=== PATIENT | female | born 1950 | race Caucasian/White ===

== ENCOUNTER 2017-01-18 16:46 | Inpatient (IN) | payer OTHER, BC ==
[~2017-01-18] VITALS: Ht 170.2 cm; Wt 99.0 kg
[2017-01-18] MEDS ORDERED: HYDROmorphone INJ 1 MG/ML SYR IV STA (17:14)
[2017-01-18] MEDS ORDERED: METOCLOPRAMIDE HCL INJ 5 MG/ML 2 ML VIAL IV STA (17:14)
[2017-01-18] MEDS ORDERED: KETOROLAC TROMETHAMINE 30 MG/ML VIAL IV STA (17:14)
[2017-01-18 17:24] LABS: BASO % 0.3 %; BASO ABS # 0.03 K/uL (0-0.2); COMPLETE YES; EOS % 0.2 %; HEMATOCRIT 42.1 % (37-47); IG% 0.1 %; LYMPH % 9.9 %; LYMPH ABS # 0.89 K/uL (1.2-3.4); MEAN CELL VOLUME 89.6 fL (80-100); MEAN CORPUSCULAR HEMOGLOBIN 30.2 pg (25-34); MEAN CORPUSCULAR HGB CONC 33.7 g/dl (32-36); MEAN PLATELET VOLUME 9.5 fL (7.4-10.4); MONO % 2.9 %; NEUT % 86.6 %; PLATELET COUNT 208 K/uL (130-400); WHITE BLOOD COUNT 8.99 K/uL (4.8-10.8)
[2017-01-18] MEDS ORDERED: METO50TA7 PO (17:24)
[2017-01-18] MEDS ORDERED: ATOR10TA82 PO (17:24)
[2017-01-18] MEDS ORDERED: ASCO500T16 PO (17:26)
[2017-01-18] MEDS ORDERED: CHOL1000 PO (17:26)
[2017-01-18] MEDS ORDERED: METF-382 PO (17:26)
[2017-01-18] MEDS ORDERED: CYAN10005 PO (17:26)
[2017-01-18] MEDS ORDERED: ASPI81TA28 PO (17:26)
[2017-01-18 17:36] LABS: ALT/SGPT 313 U/L (12-78); AST/SGOT 505 U/L (15-37); BLOOD UREA NITROGEN 20 mg/dl (7-18); BUN/CREATININE RATIO 17.7 (10-20); CALCIUM 9.3 mg/dl (8.5-10.1); CARBON DIOXIDE 25 mmol/L (21-32); CHLORIDE 103 mmol/L (98-107); GLUCOSE 185 mg/dl (70-99); POTASSIUM 4.1 mmol/L (3.5-5.1); SODIUM 139 mmol/L (136-145)
[2017-01-18] MEDS ORDERED: SODIUM CHLORIDE 0.9% 500ML 500 ML IV STA (17:40)
[2017-01-18 17:41] LABS: ALKALINE PHOSPHATASE 88 U/L (45-117)
--- NOTE | 2017-01-18 17:42 | DIAGNOSTIC IMAGING REPORT ---
CHEST ONE VIEW PORTABLE HISTORY: Atypical CHEST PAIN COMPARISON: None. FINDINGS: The lungs are clear. Cardiac silhouette is normal in size. No pleural effusions. No pneumothorax. IMPRESSION: No acute process. Electronically signed by: Shai Velazquez M.D. 01/18/2017 5:41 PM Dictated Date/Time: 01/18/2017 5:41 PM
--- NOTE | 2017-01-18 19:25 | EMERGENCY ROOM VISIT NOTE ---
History Report prepared by Christie: Funmi Glass Under the Supervision of: Dr. Chris Granados M.D. First contact with patient: 17:00 Chief Complaint: ABDOMINAL PAIN Stated Complaint: POSSIBLE ILIOSTOMY BLOCKAGE, ABDOMINAL PAIN History of Present Illness The patient is a 66 year old female who presents to the Emergency Room with complaints of worsening abdominal pain starting this morning. She currently rates her pain as an 8/10 in severity.The patient states that she ate a banana and following that, started to have the pain. She reports that the pain has continued to increase throughout the day. The patient reports that she has an ileostomy that was installed a little over a year ago. She reports that she has this installed since she had colon cancer. She notes that she had a resection of a piece of her colon twenty years ago. The patient notes that she isn't getting as much from ileostomy as normal, but that the consistency is the same. She reports that the pain is worst when standing or laying on her side. The patient complains of chest pain in the middle of her chest. Source of History: patient Onset: this morning Position: abdomen Symptom Intensity: 8/10 Timing: worsening Modifying Factors (Worsening): other (standing and laying on her side) Associated Symptoms: + chest pain Note: The patient complains of abnormal amounts from her ileostomy. The patient denies a change in the consistency from her ileostomy. Review of Systems See HPI for pertinent positives & negatives. A total of 10 systems reviewed and were otherwise negative. Past Medical & Surgical Medical Problems: (1) Abdominal pain (2) Choledocholithiasis (3) Colon cancer (4) Diabetes (5) DVT (deep venous thrombosis) (6) Hypertension Surgical Problems: (1) History of hysterectomy Family History FHx: cancer FHx: diabetes mellitus FHx: hypertension FHx: stroke Heart disease Social History Smoking Status: Never Smoker Smokeless Tobacco Use: No Alcohol Use: none Marital Status: Housing Status: lives with significant other Occupation Status: retired Current/Historical Medications Scheduled Ascorbic Acid (Ascorbic Acid), 2 TAB PO DAILY Aspirin (Aspirin Ec), 81 MG PO DAILY Atorvastatin (Lipitor), 10 MG PO DAILY Cholecalciferol (Vitamin D3), 2 TAB PO DAILY Cyanocobalamin (Vitamin B-12), 1,000 MCG PO DAILY Metformin Ext Rel (Glucophage Ext Rel), 1 TAB PO BID Metoprolol Succ (Toprol Xl) (Toprol-Xl), 0.5 TAB PO DAILY Allergies Coded Allergies: Latex1 -Allergic Contact Dermititis (Unverified Allergy, Intermediate, latex tape after a extended period of time, 01/18/17) Physical Exam Vital Signs Date Time Temp Pulse Resp B/P Pulse Ox O2 Delivery O2 Flow Rate FiO2 01/18/17 21:44 72 20 128/52 99 Room Air 01/18/17 20:48 65 20 127/48 97 Room Air 01/18/17 19:18 96 Room Air 01/18/17 19:18 96 Room Air 01/18/17 19:18 76 20 129/55 96 01/18/17 17:59 77 20 138/56 100 01/18/17 16:55 36.3 60 20 139/68 98 Room Air Physical Exam GENERAL: Patient is a healthy-appearing well-nourished HEAD: Normocephalic atraumatic EYES: Ocular movements intact pupils equal and react to light OROPHARYNX mucous membranes are moist no exudates present no erythema or edema present NECK: Supple no nuchal rigidity CHEST: Good equal expansion LUNGS: Clear and equal to auscultation CARDIAC: Normal S1 and S2 ABDOMEN: Soft nontender no guarding, diffuse abdominal pain, ileostomy placed and draining. BACK: No CVA tenderness EXTREMITIES: No pain upon palpation normal muscle strength in all groups no clubbing cyanosis or edema NEURO: Patient is following commands is answering questions appropriately. Alert and oriented x3 Cranial Nerves 2-12 grossly intact Medical Decision & Procedures ER Provider Diagnostic Interpretation: Radiology results as stated below per my review and radiologist interpretation: CHEST ONE VIEW PORTABLE HISTORY: Atypical CHEST PAIN COMPARISON: None. FINDINGS: The lungs are clear. Cardiac silhouette is normal in size. No pleural effusions. No pneumothorax. IMPRESSION: No acute process. Electronically signed by: Shai Velazquez M.D. 01/18/2017 5:41 PM Dictated Date/Time: 01/18/2017 5:41 PM ABDOMINAL ULTRASOUND, RIGHT UPPER QUADRANT HISTORY: Pt c/o abd pain, elevation in transaminases. COMPARISON: None. FINDINGS: Pancreas: The pancreatic tail is obscured by overlying bowel gas. The remaining portions of the pancreas are within normal limits. Liver: The liver is echogenic consistent with fatty change. Mildly enlarged measuring 20 cm in length. Trace fluid surrounding the liver. Gallbladder: Mild thickening of the gallbladder wall at the hepatic surface measuring 4 mm. There are few tiny gallstones. CBD: 7 mm. Right kidney: No hydronephrosis. IMPRESSION: 1. A few tiny gallstones. 2. Mild thickening at the gallbladder wall at the hepatic surface. This favors an underlying hepatic pathology. A developing acute cholecystitis could also have a similar appearance but is considered less likely. 3. The common bile duct is top normal in caliber measuring 7 mm. 4. Mild hepatomegaly demonstrating fatty change. Electronically signed by: Shai Velazquez M.D. 01/18/2017 7:31 PM Dictated Date/Time: 01/18/2017 7:27 PM ABDOMEN AND PELVIS CT WITH IV AND ORAL CONTRAST CT DOSE: 873.57 mGy.cm HISTORY: Generalized abdominal pain. Lower abdominal pain. Nausea. Vomiting. TECHNIQUE: Multiaxial CT images of the abdomen and pelvis were performed following the use of intravenous and oral contrast. COMPARISON STUDY: Abdominal ultrasound 01/18/2017. FINDINGS: A 4 mm subpleural nodule within the right lower lobe on image 9. No pneumoperitoneum. No pneumatosis. No fractures within the visualized osseous structures. Mild periportal edema. There is trace perihepatic and pericholecystic fluid. A few tiny gallstones. No hepatic or splenic masses. The adrenal glands and right kidney are unremarkable. There is a 6 cm cyst within the upper pole the left kidney. There is a 2.8 cm hypodense lesion within the lower pole of the left kidney. This contains a few calcifications. This could represent a calyceal diverticulum. No hydronephrosis. No retroperitoneal lymphadenopathy. The main portal vein is patent. The pancreas enhances normally. Small umbilical hernia containing a short segment of nonobstructed small bowel. The bladder is unremarkable. Postoperative changes consistent with prior colectomy and right lower quadrant ileostomy. Small amount of fluid along the left paracolic gutter. This also small focus of fluid at the ostomy site. Fluid at the malvin hepatis. Thickening versus under distention within the proximal jejunum along the left side of the abdomen. IMPRESSION: 1. Fluid within the malvin hepatis along with periportal edema, trace perihepatic ascites, and trace pericholecystic fluid. Findings are nonspecific but could be due to an underlying hepatic abnormality such as a hepatitis. Recommend correlation with LFTs. An acute cholecystitis or less likely pancreatitis could also have a similar appearance. There are few tiny gallstones 2. Question thickening versus under distention within the jejunum along the left side the abdomen. 3. No evidence for bowel obstruction. 4. Small umbilical hernia containing a short segment of nonobstructed small bowel. 5. Postoperative changes as described above. 6. A 2.8 cm hypodense lesion within the lower pole the left kidney which contains a few coarse calcifications. This could represent a calyceal diverticulum. Follow-up nonemergent dedicated renal CT is recommended for further evaluation. 7. A 4 mm subpleural nodule within the right lower lobe. Please refer to the chart below for recommended follow-up. Please refer to below summary of Fleischner criteria recommendations for follow-up of incidental CT nodules (Jeferson Valdivia, Guidelines for management of small pulmonary nodules detected on CT scans: A statement from the Fleischner Society, Radiology 237: [phone].) SOLID NODULES Solitary nodule size: <6 mm * Low risk patients: no follow-up needed * high risk patients: optional CT at 12 months Solitary nodule size: 6-8 mm * Low risk patients: follow-up at 6-12 months, then consider further follow-up at 18-24 months * high risk patients: initial follow-up CT at 6-12 months and then at 18-24 months if no change Solitary nodule size: >8 mm * either low or high risk patients - consider follow-up CT at 3 months, and/or CT-PET, and/or biopsy Multiple nodules size: <6 mm * Low risk patients: no routine follow-up * high risk patients: optional CT at 12 months Multiple nodules size: 6-8 mm * Low risk patients: follow-up at 3-6 months, then consider further follow-up at 18-24 months * high risk patients: follow-up at 3-6 months, then at 18-24 months if no change Multiple nodules size: >8 mm * Low risk patients: follow-up at 3-6 months, then consider further follow-up at 18-24 months * high risk patients: follow-up at 3-6 months, then at 18-24 months if no change Note: newly detected indeterminate nodule in persons 35 years of age or older. * Low risk patients: minimal or absent history of smoking and/or other known risk factors * high risk patients: history of smoking or of other known risk factors (e.g. first degree relative with lung cancer, or exposure to asbestos, radon, uranium) * if a nodule up to 8 mm is partly solid or is ground glass further follow-up is required after 24 months to exclude possible slow growing adenocarcinoma (KANCHAN) SUBSOLID NODULES Solitary pure ground-glass nodule * nodule size <6 mm - no CT follow-up required * nodule size >=6 mm - follow-up CT at 6-12 months, then every 2 years until 5 years Solitary part-solid nodule * nodule size <6 mm - no CT follow-up required * nodule size >=6 mm - follow-up CT at 3-6 months. If unchanged, and solid component remains <6 mm, then annual follow-up for 5 years Multiple subsolid nodules * nodule size <6 mm - follow-up CT at 3-6 months, consider further follow-up at 2 and 4 years if stable * nodule size >=6 mm - follow-up CT at 3-6 months, subsequent management based on the most suspicious nodule(s) Electronically signed by: Shai Velazquez M.D. 01/18/2017 8:04 PM Dictated Date/Time: 01/18/2017 7:54 PM Laboratory Results Test 01/18/17 17:10 Immature Granulocyte % (Auto) 0.1 % White Blood Count 8.99 K/uL (4.8-10.8) Red Blood Count 4.70 M/uL (4.2-5.4) Hemoglobin 14.2 g/dL (12.0-16.0) Hematocrit 42.1 % (37-47) Mean Corpuscular Volume 89.6 fL (80-100) Mean Corpuscular Hemoglobin 30.2 pg (25-34) Mean Corpuscular Hemoglobin Concent 33.7 g/dl (32-36) Platelet Count 208 K/uL (130-400) Mean Platelet Volume 9.5 fL (7.4-10.4) Neutrophils (%) (Auto) 86.6 % Lymphocytes (%) (Auto) 9.9 % Monocytes (%) (Auto) 2.9 % Eosinophils (%) (Auto) 0.2 % Basophils (%) (Auto) 0.3 % Neutrophils # (Auto) 7.78 K/uL (1.4-6.5) Lymphocytes # (Auto) 0.89 K/uL (1.2-3.4) Monocytes # (Auto) 0.26 K/uL (0.11-0.59) Eosinophils # (Auto) 0.02 K/uL (0-0.5) Basophils # (Auto) 0.03 K/uL (0-0.2) Immature Granulocyte # (Auto) 0.01 K/uL (0.00-0.02) Ferritin 532.8 ng/ml (8.0-388.0) Direct Bilirubin 0.9 mg/dl (0-0.2) Total Creatine Kinase 101 U/L (26-192) Creatine Kinase MB 1.0 ng/ml (0.5-3.6) Creatine Kinase MB Ratio 1.0 (0-3.0) Troponin I < 0.015 ng/ml (0-0.045) Hepatitis C Antibody NEG (NEG) Labs reviewed by ED physician. Medications Administered Medications (Trade) Dose Ordered Sig/Ana Route Start Time Stop Time Status Last Admin Dose Admin Hydromorphone HCl (Dilaudid Inj) 1 mg NOW STAT IV 01/18/17 17:14 01/18/17 17:16 DC 01/18/17 17:44 1 MG Metoclopramide HCl (Reglan Inj) 10 mg NOW STAT IV 01/18/17 17:14 01/18/17 17:16 DC 01/18/17 17:45 10 MG Ketorolac Tromethamine 30 mg 30 mg NOW STAT IV 01/18/17 17:14 01/18/17 17:16 DC 01/18/17 17:43 30 MG Sodium Chloride (Nss 500ml) 500 ml @ 999 mls/hr Q31M STAT IV 01/18/17 17:40 01/18/17 18:10 DC 01/18/17 17:45 999 MLS/HR Ondansetron HCl (Zofran Inj) 4 mg Q6H PRN IV 01/18/17 22:00 02/17/17 21:59 01/19/17 11:39 4 MG ECG Indication: abdominal pain Rate (beats per minute): 71 Rhythm: normal sinus Findings: no acute ischemic change, no ectopy ED Course 1700: Past medical records reviewed. The patient was evaluated in room C2B. A complete history and physical examination was performed. 1713: Ordered Toradol Inj 30 mg IV, Reglan Inj 10 mg IV, Dilaudid Inj 1 mg IV. 1739: Ordered NSS 500 ml @ 999 mls/hr IV. 1817: I reevaluated the patient and she is doing okay. 2054: I discussed the patient's case with Dr. Partida, he has agreed to evaluate the patient for further management and care. Medical Decision Medication Reconciliation: I attest that I have personally reviewed the patient' s current medication list Blood Pressure Screening: Patient was found to have an elevated blood pressure and was referred to their primary care doctor for recheck and further treatment Differential diagnosis: Etiologies such as appendicitis, diverticulitis, PUD, biliary pathology, UTI, pancreatitis, obstruction, mesenteric ischemia, aortic pathology, infections, inflammatory bowel disease, renal colic, as well as others were entertained. This is a 66-year-old female who presents emergency department complaining of abdominal pain. The patient has an ostomy and is concerned that it is blocked however she is having good output out. The patient has been having abdominal pain since last evening. Upon further questioning the patient does have a history of pancreatitis and is aware of the cyst on her kidney. An IV was established, the patient given 1 mg of Dilaudid, Zofran. The patient's laboratory work is concerning for choledocholithiasis. For this reason the patient was sent for an ultrasound of the gallbladder as well as a CAT scan of the abdomen and pelvis. This is again concerning for choledocholithiasis. I did discuss the case with the hospitalist service who agreed to admit the patient. Patient was in agreement with the treatment plan. Impression Primary Impression: Pancreatitis Scribe Attestation The scribe's documentation has been prepared under my direction and personally reviewed by me in its entirety. I confirm that the note above accurately reflects all work, treatment, procedures, and medical decision making performed by me. Departure Information Dispostion Being Evaluated By Hospitalist Referrals No Doctor, Assigned (PCP) Patient Instructions My [facility] Problem Qualifiers Primary Impression: Pancreatitis Chronicity: acute Pancreatitis type: unspecified pancreatitis type Acute pancreatitis complication: unspecified Qualified Codes: K85.90 - Acute pancreatitis without necrosis or infection, unspecified
[2017-01-18] MEDS ORDERED: OPTIRAY 320 IV PRN (19:30)
--- NOTE | 2017-01-18 19:32 | DIAGNOSTIC IMAGING REPORT ---
ABDOMINAL ULTRASOUND, RIGHT UPPER QUADRANT HISTORY: Pt c/o abd pain, elevation in transaminases. COMPARISON: None. FINDINGS: Pancreas: The pancreatic tail is obscured by overlying bowel gas. The remaining portions of the pancreas are within normal limits. Liver: The liver is echogenic consistent with fatty change. Mildly enlarged measuring 20 cm in length. Trace fluid surrounding the liver. Gallbladder: Mild thickening of the gallbladder wall at the hepatic surface measuring 4 mm. There are few tiny gallstones. CBD: 7 mm. Right kidney: No hydronephrosis. IMPRESSION: 1. A few tiny gallstones. 2. Mild thickening at the gallbladder wall at the hepatic surface. This favors an underlying hepatic pathology. A developing acute cholecystitis could also have a similar appearance but is considered less likely. 3. The common bile duct is top normal in caliber measuring 7 mm. 4. Mild hepatomegaly demonstrating fatty change. Electronically signed by: Shai Velazquez M.D. 01/18/2017 7:31 PM Dictated Date/Time: 01/18/2017 7:27 PM
--- NOTE | 2017-01-18 20:29 | DIAGNOSTIC IMAGING REPORT ---
ABDOMEN AND PELVIS CT WITH IV AND ORAL CONTRAST CT DOSE: 873.57 mGy.cm HISTORY: Generalized abdominal pain. Lower abdominal pain. Nausea. Vomiting. TECHNIQUE: Multiaxial CT images of the abdomen and pelvis were performed following the use of intravenous and oral contrast. COMPARISON STUDY: Abdominal ultrasound 01/18/2017. FINDINGS: A 4 mm subpleural nodule within the right lower lobe on image 9. No pneumoperitoneum. No pneumatosis. No fractures within the visualized osseous structures. Mild periportal edema. There is trace perihepatic and pericholecystic fluid. A few tiny gallstones. No hepatic or splenic masses. The adrenal glands and right kidney are unremarkable. There is a 6 cm cyst within the upper pole the left kidney. There is a 2.8 cm hypodense lesion within the lower pole of the left kidney. This contains a few calcifications. This could represent a calyceal diverticulum. No hydronephrosis. No retroperitoneal lymphadenopathy. The main portal vein is patent. The pancreas enhances normally. Small umbilical hernia containing a short segment of nonobstructed small bowel. The bladder is unremarkable. Postoperative changes consistent with prior colectomy and right lower quadrant ileostomy. Small amount of fluid along the left paracolic gutter. This also small focus of fluid at the ostomy site. Fluid at the malvin hepatis. Thickening versus under distention within the proximal jejunum along the left side of the abdomen. IMPRESSION: 1. Fluid within the malvin hepatis along with periportal edema, trace perihepatic ascites, and trace pericholecystic fluid. Findings are nonspecific but could be due to an underlying hepatic abnormality such as a hepatitis. Recommend correlation with LFTs. An acute cholecystitis or less likely pancreatitis could also have a similar appearance. There are few tiny gallstones 2. Question thickening versus under distention within the jejunum along the left side the abdomen. 3. No evidence for bowel obstruction. 4. Small umbilical hernia containing a short segment of nonobstructed small bowel. 5. Postoperative changes as described above. 6. A 2.8 cm hypodense lesion within the lower pole the left kidney which contains a few coarse calcifications. This could represent a calyceal diverticulum. Follow-up nonemergent dedicated renal CT is recommended for further evaluation. 7. A 4 mm subpleural nodule within the right lower lobe. Please refer to the chart below for recommended follow-up. Please refer to below summary of Flegagandeep criteria recommendations for follow-up of incidental CT nodules (Jeferson Valdivia, Guidelines for management of small pulmonary nodules detected on CT scans: A statement from the Fleischner Society, Radiology 237: [phone].) SOLID NODULES Solitary nodule size: <6 mm * Low risk patients: no follow-up needed * high risk patients: optional CT at 12 months Solitary nodule size: 6-8 mm * Low risk patients: follow-up at 6-12 months, then consider further follow-up at 18-24 months * high risk patients: initial follow-up CT at 6-12 months and then at 18-24 months if no change Solitary nodule size: >8 mm * either low or high risk patients - consider follow-up CT at 3 months, and/or CT-PET, and/or biopsy Multiple nodules size: <6 mm * Low risk patients: no routine follow-up * high risk patients: optional CT at 12 months Multiple nodules size: 6-8 mm * Low risk patients: follow-up at 3-6 months, then consider further follow-up at 18-24 months * high risk patients: follow-up at 3-6 months, then at 18-24 months if no change Multiple nodules size: >8 mm * Low risk patients: follow-up at 3-6 months, then consider further follow-up at 18-24 months * high risk patients: follow-up at 3-6 months, then at 18-24 months if no change Note: newly detected indeterminate nodule in persons 35 years of age or older. * Low risk patients: minimal or absent history of smoking and/or other known risk factors * high risk patients: history of smoking or of other known risk factors (e.g. first degree relative with lung cancer, or exposure to asbestos, radon, uranium) * if a nodule up to 8 mm is partly solid or is ground glass further follow-up is required after 24 months to exclude possible slow growing adenocarcinoma (KANCHAN) SUBSOLID NODULES Solitary pure ground-glass nodule * nodule size <6 mm - no CT follow-up required * nodule size >=6 mm - follow-up CT at 6-12 months, then every 2 years until 5 years Solitary part-solid nodule * nodule size <6 mm - no CT follow-up required * nodule size >=6 mm - follow-up CT at 3-6 months. If unchanged, and solid component remains <6 mm, then annual follow-up for 5 years Multiple subsolid nodules * nodule size <6 mm - follow-up CT at 3-6 months, consider further follow-up at 2 and 4 years if stable * nodule size >=6 mm - follow-up CT at 3-6 months, subsequent management based on the most suspicious nodule(s) Electronically signed by: Shai Velazquez M.D. 01/18/2017 8:04 PM Dictated Date/Time: 01/18/2017 7:54 PM
[2017-01-18] MEDS ORDERED: ONDANSETRON INJ 2 MG/ML 2 ML VIAL IV PRN (22:00)
[2017-01-18] MEDS ORDERED: MAGNESIUM HYDROXIDE SUSP 30 ML UDC PO PRN (22:00)
[2017-01-18] MEDS ORDERED: ZOLPIDEM TARTRATE 5 MG TAB PO PRN (22:00)
[2017-01-18] MEDS ORDERED: ALUMINUM/MAGNESIUM/SIMETH (MAALOX MAX) 30 ML UDC PO PRN (22:00)
[2017-01-18] MEDS ORDERED: POLYETHYLENE (MIRALAX) 17 GM PACK PO PRN (22:00)
[2017-01-18] MEDS ORDERED: ACETAMINOPHEN 325 MG TAB PO PRN (22:00)
[2017-01-18] MEDS ORDERED: METOCLOPRAMIDE HCL INJ 5 MG/ML 2 ML VIAL IV PRN (22:15)
--- NOTE | 2017-01-18 22:48 | History and Physical ---
History & Physical Date & Time of Service: January 18, 2017 at 22:30 Chief Complaint: Possible Iliostomy Blockage, Abdominal Pain Primary Care Physician: No Doctor, Assigned History of Present Illness Source: patient 66 y/o F Hx Colon CA - colostomy 2012, DM, DVT, HTN. Visiting from the [place] area and developed acute abdominal pain, nausea and vomiting. Symptoms persisted and she presented to the hospital. A CT abdomen was obtained and is equivocal, favoring a possible hepatitis although cholecystitis and pancreatitis could not be ruled out. LFTs and Lipase are additionally elevated. She denies CP, SOB, fevers or change on her colostomy output. Family History FHx: cancer FHx: diabetes mellitus FHx: hypertension FHx: stroke Heart disease Social History Smoking Status: Never Smoker Smokeless Tobacco Use: No Marital Status: Occupational Status: retired Allergies Coded Allergies: Latex1 -Allergic Contact Dermititis (Unverified Allergy, Intermediate, latex tape after a extended period of time, 01/18/17) Home Medications Scheduled Ascorbic Acid (Ascorbic Acid), 2 TAB PO DAILY Aspirin (Aspirin Ec), 81 MG PO DAILY Atorvastatin (Lipitor), 10 MG PO DAILY Cholecalciferol (Vitamin D3), 2 TAB PO DAILY Cyanocobalamin (Vitamin B-12), 1,000 MCG PO DAILY Metformin Ext Rel (Glucophage Ext Rel), 1 TAB PO BID Metoprolol Succ (Toprol Xl) (Toprol-Xl), 0.5 TAB PO DAILY Review of Systems Constitutional: No chills, No fever, No sweats Eyes: No eye pain, No worsening of vision ENT: No hearing loss, No nasal symptoms, No unusual epistaxis Respiratory: No cough, No sputum, No wheezing Cardiovascular: No PND, No chest pain, No orthopnea Abdomen: + nausea, + pain, + vomiting, No GI bleeding, No constipation, No diarrhea Musculoskeletal: No joint pain Genitourinary - Female: No dysuria, No urinary frequency, No urinary urgency Neurologic: No memory loss, No paralysis, No weakness Psychiatric: No depression symptoms Endocrine: No fatigue Hematologic / Lymphatic: No abnormal bleeding/bruising Integumentary: No rash Physical Exam Vital Signs Date Time Temp Pulse Resp B/P Pulse Ox O2 Delivery O2 Flow Rate FiO2 01/18/17 21:44 72 20 128/52 99 Room Air 01/18/17 20:48 65 20 127/48 97 Room Air 01/18/17 19:18 96 Room Air 01/18/17 19:18 96 Room Air 01/18/17 19:18 76 20 129/55 96 01/18/17 17:59 77 20 138/56 100 01/18/17 16:55 36.3 60 20 139/68 98 Room Air General Appearance: WD/WN, no apparent distress Head: normocephalic Eyes: normal inspection, PERRL, EOMI ENT: normal ENT inspection, pharynx normal Neck: supple, no JVD Respiratory/Chest: chest non-tender, lungs clear, normal breath sounds Cardiovascular: regular rate, rhythm, no edema, no gallop, no JVD, no murmur, normal peripheral pulses Abdomen/GI: normal bowel sounds, soft, + tenderness Back: normal inspection, no CVA tenderness, no muscle spasm, normal range of motion Extremities/Musculoskelatal: normal inspection, normal range of motion Neurologic/Psych: pensions retirement plan specialist II-XII nml as tested, no motor/sensory deficits, alert, normal mood/affect, normal reflexes, oriented x 3 Skin: normal color, warm/dry, no rash Diagnostics Laboratory Results Results Past 24 Hours Test 01/18/17 17:10 Range/Units White Blood Count 8.99 4.8-10.8 K/uL Red Blood Count 4.70 4.2-5.4 M/uL Hemoglobin 14.2 12.0-16.0 g/dL Hematocrit 42.1 37-47 % Mean Corpuscular Volume 89.6 80-100 fL Mean Corpuscular Hemoglobin 30.2 25-34 pg Mean Corpuscular Hemoglobin Concent 33.7 32-36 g/dl Platelet Count 208 130-400 K/uL Mean Platelet Volume 9.5 7.4-10.4 fL Neutrophils (%) (Auto) 86.6 % Lymphocytes (%) (Auto) 9.9 % Monocytes (%) (Auto) 2.9 % Eosinophils (%) (Auto) 0.2 % Basophils (%) (Auto) 0.3 % Neutrophils # (Auto) 7.78 1.4-6.5 K/uL Lymphocytes # (Auto) 0.89 1.2-3.4 K/uL Monocytes # (Auto) 0.26 0.11-0.59 K/uL Eosinophils # (Auto) 0.02 0-0.5 K/uL Basophils # (Auto) 0.03 0-0.2 K/uL RDW Standard Deviation 44.9 36.4-46.3 fL RDW Coefficient of Variation 13.5 11.5-14.5 % Immature Granulocyte % (Auto) 0.1 % Immature Granulocyte # (Auto) 0.01 0.00-0.02 K/uL Sodium Level 139 136-145 mmol/L Potassium Level 4.1 3.5-5.1 mmol/L Chloride Level 103 98-107 mmol/L Carbon Dioxide Level 25 21-32 mmol/L Anion Gap 11.0 3-11 mmol/L Blood Urea Nitrogen 20 7-18 mg/dl Creatinine 1.10 0.60-1.20 mg/dl Est Creatinine Clear Calc Drug Dose 58.2 ml/min Estimated GFR () 59.7 Estimated GFR (Non- 51.5 BUN/Creatinine Ratio 17.7 10-20 Random Glucose 185 70-99 mg/dl Calcium Level 9.3 8.5-10.1 mg/dl Ferritin 532.8 8.0-388.0 ng/ml Total Bilirubin 1.6 0.2-1 mg/dl Direct Bilirubin 0.9 0-0.2 mg/dl Aspartate Amino Transf (AST/SGOT) 505 15-37 U/L Alanine Aminotransferase (ALT/SGPT) 313 12-78 U/L Alkaline Phosphatase 88 45-117 U/L Total Creatine Kinase 101 26-192 U/L Creatine Kinase MB 1.0 0.5-3.6 ng/ml Creatine Kinase MB Ratio 1.0 0-3.0 Troponin I < 0.015 0-0.045 ng/ml Total Protein 7.9 6.4-8.2 gm/dl Albumin 4.3 3.4-5.0 gm/dl Lipase 42363 73-393 U/L Hepatitis C Antibody NEG NEG Diagnostic Radiology 1. Fluid within the malvin hepatis along with periportal edema, trace perihepatic ascites, and trace pericholecystic fluid. Findings are nonspecific but could be due to an underlying hepatic abnormality such as a hepatitis. Recommend correlation with LFTs. An acute cholecystitis or less likely pancreatitis could also have a similar appearance. There are few tiny gallstones 2. Question thickening versus under distention within the jejunum along the left side the abdomen. 3. No evidence for bowel obstruction. 4. Small umbilical hernia containing a short segment of nonobstructed small bowel. 5. Postoperative changes as described above. 6. A 2.8 cm hypodense lesion within the lower pole the left kidney which contains a few coarse calcifications. This could represent a calyceal diverticulum. Follow-up nonemergent dedicated renal CT is recommended for further evaluation. 7. A 4 mm subpleural nodule within the right lower lobe. Please refer to the chart below for recommended follow-up. 1. A few tiny gallstones. 2. Mild thickening at the gallbladder wall at the hepatic surface. This favors an underlying hepatic pathology. A developing acute cholecystitis could also have a similar appearance but is considered less likely. 3. The common bile duct is top normal in caliber measuring 7 mm. 4. Mild hepatomegaly demonstrating fatty change. Impression Assessment and Plan 66 y/o F Hx Colon CA - colostomy 2013, DM, DVT, HTN. Visiting from the [place] area and developed acute abdominal pain, nausea and vomiting. Symptoms persisted and she presented to the hospital. A CT abdomen was obtained and is equivocal, favoring a possible hepatitis although cholecystitis and pancreatitis could not be ruled out. LFTs and Lipase are additionally elevated. 1) Abdominal pain, N/V - She does have some gall stones and a CBD at the upper limit of normal. Her symptoms were largely acute so that she may have had a ductal stone which passed. This would explain the elevation in both LFTs and Lipase. Further supporting this diagnosis is that her lipase is markedly elevated without imaging showing inflammation. We will keep her NPO, provide aggressive IVF, antiemetics and consult GI. 2) DM - Placed on SS 3) HTN - Cont Metoprolol - can provide IV if needed 4) HPL - statin held due to acute transaminitis Full code - heparin prophylaxis Total time for this admit including review of labs, meds, imaging - discussion with pt and ER attending - 38 min Level of Care Med/Surg Resuscitation Status FULL RESUSCITATION VTE Prophylaxis VTE Risk Assessment Done? Y/N: Yes Risk Level: High Given or contraindicated: Unfractionated heparin SQ
[2017-01-18 23:06] VITALS: BP 127/54; PULSE 72; TEMP 36.3; O2SAT 97; Ht 170.2 cm; Wt 99.0 kg
[2017-01-18 23:25] VITALS: BP 146/77; PULSE 57; TEMP 36.6; O2SAT 97
[2017-01-19] MEDS ORDERED: GLUCOSE 10 TABS/TUBE PO PRN (00:15)
[2017-01-19] MEDS ORDERED: DEXTROSE 50% 50 ML SYR IV PRN (00:15)
[2017-01-19] MEDS ORDERED: GLUCAGON FOR INJ 1 MG VIAL SQ PRN (00:15)
[2017-01-19] MEDS ORDERED: GLUCOSE 40% GEL 15 GM TUBE PO PRN (00:15)
[2017-01-19] MEDS: SODIUM CHLORIDE 0.9% 1000ML 1,000 ML IV SCH ×4 (02:08→21:04)
[2017-01-19] MEDS: MoRPHine SULFATE 4 MG/ML 1 ML CARP\\VIAL ONE ×2 (03:39→03:46)
[2017-01-19] MEDS: MoRPHine SULFATE 4 MG/ML 1 ML CARP\\VIAL IV PRN ×4 (03:45→21:02)
[2017-01-19] MEDS: INSULIN ASPART 100 UNITS/ML 3 ML PEN SC SCH ×4 (05:46→18:00)
[2017-01-19 06:02] LABS: HEMATOCRIT 38.6 % (37-47); MEAN CELL VOLUME 90.8 fL (80-100); MEAN CORPUSCULAR HEMOGLOBIN 29.6 pg (25-34); MEAN CORPUSCULAR HGB CONC 32.6 g/dl (32-36); MEAN PLATELET VOLUME 9.6 fL (7.4-10.4); PLATELET COUNT 171 K/uL (130-400); RED BLOOD COUNT 4.25 M/uL (4.2-5.4); WHITE BLOOD COUNT 9.27 K/uL (4.8-10.8)
[2017-01-19 06:14] LABS: INR 1.1 (0.9-1.1); PROTHROMBIN TIME (PATIENT) 11.3 SECONDS (9.0-12.0)
[2017-01-19 06:39] LABS: BUN/CREATININE RATIO 20.8 (10-20); CALCIUM 8.7 mg/dl (8.5-10.1); CREATININE 0.92 mg/dl (0.60-1.20); MAGNESIUM 2.2 mg/dl (1.8-2.4)
[2017-01-19 06:47] LABS: ALB/GLOB RATIO 1.1 (0.9-2)
[2017-01-19 07:14] VITALS: BP 137/70; PULSE 82; TEMP 37.2; O2SAT 96
[2017-01-19] MEDS: HEPARIN SOD 5000 UNIT/0.5 ML CARP SQ SCH ×3 (09:55→22:05)
[2017-01-19] MEDS ORDERED: NURSING VERBAL MED ORDER ONE (12:15)
[2017-01-19] MEDS ORDERED: LORAZEPAM INJ 0.5 MG in SYRINGE 0.75 ML IV SCH (12:30)
--- NOTE | 2017-01-19 13:03 | GASTROINTESTINAL CONSULTATION ---
DATE OF CONSULTATION: 01/19/2017 CHIEF COMPLAINT: Abdominal pain, pancreatitis and abnormal liver tests. HISTORY OF PRESENT ILLNESS: Mrs. Bernal is a 66-year-old white female with a history of type 2 diabetes mellitus, hypertension, prior colon cancer with resection in 1996 and subsequent recurrence of surgery at the distal rectal area with ultimate proctocolectomy and ileostomy. Initial cancer was in 1996 and subsequent surgery was in 2012. The patient also has a history of early endometrial uterine cancer with a JUAQUIN-BSO performed in 2010. The patient is from the [facility] and was visiting for a family gathering in this area and on Thursday morning developed abdominal pain which she thought was related to an unripe banana; this pain continued and ultimately she sought evaluation at the Emergency Room. Her symptoms were accompanied by nausea and vomiting. The patient has not had any chronic weight loss, prior history of pancreatitis, gallbladder attacks, nausea, vomiting and her stool output has been stable via the stoma. On evaluation, she was found to have elevations in her transaminases as well as lipase and a CT scan suggested some fluid accumulation in the malvin hepatis region with thickening of a portion of the gallbladder adjacent to the liver. Top normal size bile duct without obvious filling defects and perhaps inflammation around the pancreas. SOCIAL HISTORY: The patient denies tobacco or alcohol use. She is and retired. ALLERGIES: TO LATEX. 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 She also has diabetes, hypertension, stroke and coronary artery disease. Family history is otherwise not contributory. The patient also has a history of DVT. HOME MEDICATIONS: Include; ascorbic acid, aspirin, Lipitor, B12, D3, metformin and Lopressor. REVIEW OF SYSTEMS: Otherwise noncontributory based on 14-point exam except for as mentioned above. The patient denies odynophagia, dysphagia, nausea, vomiting, weight loss, bloody stomal output or diarrhea. The patient also has a history of basal cell carcinoma. There are no rashes. The patient denies dysuria, hematuria, respiratory, kidney or other endocrine abnormalities. PHYSICAL EXAMINATION: VITAL SIGNS: Today; patient was afebrile on admission 36.3, blood pressure 139/68, respirations 20, pulse 60 and 98% on room air. GENERAL: The patient currently is awake, alert and oriented x3, resting comfortably in bed. She still has abdominal pain on palpation. HEENT: Sclerae anicteric, conjunctiva moist. Oral mucosa is moist. NECK: There is no cervical or supraclavicular adenopathy. I do not appreciate thyromegaly. HEART: Normal S1, S2. LUNGS: Clear to auscultation without rales, rhonchi or wheezes. ABDOMEN: Soft, mildly tender in the epigastrium above the level of the umbilicus. There is scant stool in the stoma. The abdomen is obese, but not distended or tympanitic. There are positive bowel sounds. EXTREMITIES: Without clubbing or cyanosis. There is perhaps trace edema and lymphedema. RECTAL: Not applicable. LABORATORY STUDIES: Reviewed. White count on admission was 8.9 with a hemoglobin of 14.2 and 42.1, MCV of 89.6 and platelets 208,000. Sodium 139, potassium 4.1, chloride 103, bicarbonate 25, BUN and creatinine were 20 and 1.1. Total bilirubin on admission was 1.6 with a direct of 0.9; which were both slightly elevated. AST 505, ALT 313, alkaline phosphatase 88, CPK was 101 and MB fraction 1.0. Normal troponin level. Lipase of 23,109. Hepatitis C antibody was negative. CT scan suggested fluid in the malvin hepatis with periportal edema, trace perihepatic ascites and trace pericholecystic fluid. Acute cholecystitis versus pancreatitis maybe culprits. There are small gallstones noted. A portion of the jejunum on the left side may have a slight thickened appearance versus under distention, no evidence for bowel obstruction. There is an umbilical hernia. There is a hypodense left lower pole kidney which contains calcifications and may represent a calyceal diverticulum. There is also a small subpleural nodule within the right lower lobe, 4 mm. Abdominal ultrasound revealed similar findings to the CAT scan, common bile duct is 7 mm, a few tiny gallstones and mild gallbladder wall thickening at the hepatic surface that was 4 mm in thickness. The liver is fatty in appearance and mildly enlarged. The pancreas are unremarkable overall. Additional laboratory studies since admission; white count 9.2, lipase is down to 5216, total bilirubin is down to 1.0. AST is down to 205 and ALT down to 246. Alkaline phosphatase remains normal at 73. IMPRESSION: A 66-year-old white female with a history of uterine cancer, colon cancer on 2 occasions with now end ileostomy and acute onset of abdominal pain on Thursday morning. The features are suggestive of gallstone pancreatitis based on mild inflammatory changes around the pancreas, although there is some malvin hepatis fluid accumulation, mild gallbladder wall thickening and trace pericholecystic fluid as well. Tiny gallstones were noted. The common bile duct is prominent, but no report of a filling defect is appreciated. Pattern of liver function tests and pancreatic enzymes also are suggestive of gallstone pancreatitis. The patient denies alcohol use, tobacco use or non steroidal anti inflammatory drugs use. I made the following recommendations: I believe it is prudent for the patient to have an MRCP initially to see if there is evidence for retained stones or sludge within the biliary system. If present, then ERCP would be prudent. If negative, then would trend these numbers and would also obtain a surgical consultation for eventual cholecystectomy, at which time an intraoperative cholangiogram could be completed. The nature of the local inflammatory features of the gallbladder wall at the liver surface is unclear and at which point if necessary a liver biopsy could be obtained as well. However, based on the lack of chronic symptoms, the acute onset of the nature, the pattern and the trend of the tests a primary hepatic pathology would be less likely. There may be a component of fatty liver disease given the patient's metabolic syndrome with type 2 diabetes and hypertension. All questions were answered. We will follow with you. Consider a surgical consultation if not already obtained. Thank you for allowing me to participate in this patient's care. VADIM
--- NOTE | 2017-01-19 14:43 | DIAGNOSTIC IMAGING REPORT ---
MRCP HISTORY: Abnormal CT. Right upper quadrant abdominal pain. prom. CBC, labs CW GALLSTONE PANCREATITIS; assess for stones/sludge TECHNIQUE: MRCP of the abdomen was performed without the use of intravenous contrast. COMPARISON STUDY: Abdomen and pelvis CT 01/18/2017. FINDINGS: Trace bilateral pleural effusions. Trace perihepatic ascites. Periportal edema is again noted. There is also pericholecystic fluid. The spleen and adrenal glands are unremarkable. No hepatic or splenic masses. There is fluid surrounding a few loops of small bowel within the left side of the abdomen. These may be mildly thickened versus underdistention. Asymmetric thickening of the gallbladder wall at the hepatic surface. A 5.7 cm cyst within the upper pole the left kidney. There is also a 2.6 cm lobular T2 hyperintense lesion within the lower pole the left kidney. This contains a few small calcifications. This could represent a calyceal diverticulum rather than a renal lesion. A few tiny stones within the gallbladder. The common bile duct measures 6 mm. No filling defects seen within the common bile duct. The main pancreatic duct is normal in course and caliber. Trace peripancreatic fluid. No intrahepatic bile duct dilatation. IMPRESSION: 1. The common bile duct and main pancreatic duct are normal in course and caliber. No filling defects within the common bile duct. 2. There is again noted periportal edema with pericholecystic and peripancreatic fluid. There is asymmetric thickening of the gallbladder wall on the hepatic surface. There is trace perihepatic ascites. These findings are nonspecific and could be seen in the setting of a hepatitis, pancreatitis, or acute cholecystitis. 3. A few small gallstones. 4. Additional findings as described above. Electronically signed by: Shai Velazquez M.D. 01/19/2017 2:41 PM Dictated Date/Time: 01/19/2017 2:33 PM
--- NOTE | 2017-01-19 15:10 | Progress Note ---
Subjective Date of Service: January 19, 2017. Subjective Pt evaluation today including: conversation w/ patient, conversation w/ family , physical exam, lab review, review of studies, conversation w/ immigration consultant, review of inpatient medication list Pain: controlled PO Intake: NPO Voiding: no voiding problems patient feels slightly better overall I personally reviewed lab results and findings on MRCP appreciate GI recommendations patient has some nausea but not severe she has a slight appetite Review of Systems Abdomen: + nausea, + pain (epigastric), No GI bleeding, No constipation, No diarrhea, No vomiting All Other Systems: Reviewed and Negative Medications Current Inpatient Medications Medications (Trade) Dose Ordered Sig/Ana Route Start Time Stop Time Status Last Admin Dose Admin Ioversol (Optiray 320) 100 ml UD PRN IV 01/18/17 19:30 01/22/17 19:29 Heparin Sodium (Porcine) (Heparin Sq 5000 Unit/0.5ml) 5,000 unit Q8H SQ 01/19/17 06:00 02/18/17 05:59 01/19/17 09:55 5,000 UNIT Al Hydrox/Mg Hydrox/Simethicone (Maalox Max Susp) 15 ml Q4H PRN PO 01/18/17 22:00 02/17/17 21:59 Magnesium Hydroxide (Milk Of Magnesia Susp) 30 ml Q6H PRN PO 01/18/17 22:00 02/17/17 21:59 Polyethylene (Miralax Powder Packet) 17 gm DAILY PRN PO 01/18/17 22:00 02/17/17 21:59 Zolpidem Tartrate (Ambien Tab) 5 mg HSZ PRN PO 01/18/17 22:00 02/17/17 21:59 Ondansetron HCl (Zofran Inj) 4 mg Q6H PRN IV 01/18/17 22:00 02/17/17 21:59 01/19/17 11:39 4 MG Insulin Aspart (novoLOG ASPART) SLIDING SCALE G... Q6 SC 01/19/17 00:00 02/18/17 00:00 Metoclopramide HCl (Reglan Inj) 5 mg Q6H PRN IV 01/18/17 22:15 02/17/17 22:14 Glucose (Glucose 40% Gel) 15-30 GRAMS 15 GRAMS... UD PRN PO 01/19/17 00:15 02/18/17 00:14 Glucose (Glucose Chew Tab) 4-8 Tablets 4 Tabl... UD PRN PO 01/19/17 00:15 02/18/17 00:14 Dextrose (Dextrose 50% 50ML Syringe) 25-50ML OF 50% DW IV FOR... UD PRN IV 01/19/17 00:15 02/18/17 00:14 Glucagon 1 mg 1 mg UD PRN SQ 01/19/17 00:15 02/18/17 00:14 Sodium Chloride (Nss 1000ml) 1,000 ml @ 150 mls/hr Q6H40M IV 01/19/17 01:45 02/18/17 01:44 01/19/17 14:24 150 MLS/HR Morphine Sulfate 3 mg 3 mg Q3H PRN IV 01/19/17 03:30 02/02/17 03:29 01/19/17 11:27 3 MG Lorazepam/Syringe (Ativan Inj/ Syringe) 1 ml @ 1 mls/min TODAY@1230 IV 01/19/17 12:30 01/19/17 18:00 01/19/17 12:41 1 MLS/MIN Objective Vital Signs Date Time Temp Pulse Resp B/P Pulse Ox O2 Delivery O2 Flow Rate FiO2 01/19/17 09:36 Room Air 01/19/17 07:14 37.2 82 18 137/70 96 Room Air 01/18/17 23:25 Room Air 01/18/17 23:25 36.6 57 16 146/77 97 Room Air 01/18/17 23:06 36.3 72 20 127/54 97 Room Air 01/18/17 22:37 72 20 127/54 97 Room Air 01/18/17 21:44 72 20 128/52 99 Room Air 01/18/17 20:48 65 20 127/48 97 Room Air 01/18/17 19:18 96 Room Air 01/18/17 19:18 96 Room Air 01/18/17 19:18 76 20 129/55 96 01/18/17 17:59 77 20 138/56 100 01/18/17 16:55 36.3 60 20 139/68 98 Room Air Physical Exam General Appearance: WD/WN, no apparent distress Eyes: normal inspection, EOMI, sclerae normal Neck: supple, no adenopathy, no JVD, trachea midline Respiratory/Chest: chest non-tender, lungs clear, normal breath sounds, no respiratory distress, no accessory muscle use Cardiovascular: regular rate, rhythm, no edema, no gallop, no JVD, no murmur Abdomen: normal bowel sounds, soft, no organomegaly, + tenderness (epigastric, no rigidity or rebound) Extremities: normal range of motion, non-tender, normal inspection, no pedal edema, no calf tenderness, pelvis stable Neurologic/Psychiatric: forepart laster II-XII nml as tested, no motor/sensory deficits, alert, normal mood/affect, oriented x 3 Skin: normal color, warm/dry, no rash Lymphatic: no adenopathy Laboratory Results MRCP HISTORY: Abnormal CT. Right upper quadrant abdominal pain. prom. CBC, labs CW GALLSTONE PANCREATITIS; assess for stones/sludge TECHNIQUE: MRCP of the abdomen was performed without the use of intravenous contrast. COMPARISON STUDY: Abdomen and pelvis CT 01/18/2017. FINDINGS: Trace bilateral pleural effusions. Trace perihepatic ascites. Periportal edema is again noted. There is also pericholecystic fluid. The spleen and adrenal glands are unremarkable. No hepatic or splenic masses. There is fluid surrounding a few loops of small bowel within the left side of the abdomen. These may be mildly thickened versus underdistention. Asymmetric thickening of the gallbladder wall at the hepatic surface. A 5.7 cm cyst within the upper pole the left kidney. There is also a 2.6 cm lobular T2 hyperintense lesion within the lower pole the left kidney. This contains a few small calcifications. This could represent a calyceal diverticulum rather than a renal lesion. A few tiny stones within the gallbladder. The common bile duct measures 6 mm. No filling defects seen within the common bile duct. The main pancreatic duct is normal in course and caliber. Trace peripancreatic fluid. No intrahepatic bile duct dilatation. IMPRESSION: 1. The common bile duct and main pancreatic duct are normal in course and caliber. No filling defects within the common bile duct. 2. There is again noted periportal edema with pericholecystic and peripancreatic fluid. There is asymmetric thickening of the gallbladder wall on the hepatic surface. There is trace perihepatic ascites. These findings are nonspecific and could be seen in the setting of a hepatitis, pancreatitis, or acute cholecystitis. 3. A few small gallstones. 4. Additional findings as described above. Last 24 Hours Test 01/18/17 17:10 01/19/17 00:40 01/19/17 05:09 01/19/17 05:47 White Blood Count 8.99 K/uL 9.27 K/uL Red Blood Count 4.70 M/uL 4.25 M/uL Hemoglobin 14.2 g/dL 12.6 g/dL Hematocrit 42.1 % 38.6 % Mean Corpuscular Volume 89.6 fL 90.8 fL Mean Corpuscular Hemoglobin 30.2 pg 29.6 pg Mean Corpuscular Hemoglobin Concent 33.7 g/dl 32.6 g/dl Platelet Count 208 K/uL 171 K/uL Mean Platelet Volume 9.5 fL 9.6 fL Neutrophils (%) (Auto) 86.6 % Lymphocytes (%) (Auto) 9.9 % Monocytes (%) (Auto) 2.9 % Eosinophils (%) (Auto) 0.2 % Basophils (%) (Auto) 0.3 % Neutrophils # (Auto) 7.78 K/uL Lymphocytes # (Auto) 0.89 K/uL Monocytes # (Auto) 0.26 K/uL Eosinophils # (Auto) 0.02 K/uL Basophils # (Auto) 0.03 K/uL RDW Standard Deviation 44.9 fL 46.5 fL RDW Coefficient of Variation 13.5 % 14.0 % Immature Granulocyte % (Auto) 0.1 % Immature Granulocyte # (Auto) 0.01 K/uL Sodium Level 139 mmol/L 139 mmol/L Potassium Level 4.1 mmol/L 4.0 mmol/L Chloride Level 103 mmol/L 105 mmol/L Carbon Dioxide Level 25 mmol/L 26 mmol/L Anion Gap 11.0 mmol/L 8.0 mmol/L Blood Urea Nitrogen 20 mg/dl 19 mg/dl Creatinine 1.10 mg/dl 0.92 mg/dl Est Creatinine Clear Calc Drug Dose 58.2 ml/min 69.6 ml/min Estimated GFR () 59.7 74.2 Estimated GFR (Non- 51.5 64.0 BUN/Creatinine Ratio 17.7 20.8 Random Glucose 185 mg/dl 118 mg/dl Calcium Level 9.3 mg/dl 8.7 mg/dl Ferritin 532.8 ng/ml Total Bilirubin 1.6 mg/dl 1.0 mg/dl Direct Bilirubin 0.9 mg/dl Aspartate Amino Transf (AST/SGOT) 505 U/L 205 U/L Alanine Aminotransferase (ALT/SGPT) 313 U/L 246 U/L Alkaline Phosphatase 88 U/L 73 U/L Total Creatine Kinase 101 U/L Creatine Kinase MB 1.0 ng/ml Creatine Kinase MB Ratio 1.0 Troponin I < 0.015 ng/ml Total Protein 7.9 gm/dl 6.8 gm/dl Albumin 4.3 gm/dl 3.5 gm/dl Lipase 94080 U/L 5216 U/L Hepatitis C Antibody NEG Bedside Glucose 127 mg/dl 123 mg/dl Prothrombin Time 11.3 SECONDS Prothromb Time International Ratio 1.1 Magnesium Level 2.2 mg/dl Globulin 3.3 gm/dl Albumin/Globulin Ratio 1.1 Test 01/19/17 11:55 Bedside Glucose 118 mg/dl Assessment and Plan 66 y/o F Hx Colon CA - colostomy 2012, DM, DVT, HTN. Visiting from the [place] area and developed acute abdominal pain, nausea and vomiting. Symptoms persisted and she presented to the hospital. A CT abdomen was obtained and is equivocal, favoring a possible hepatitis although cholecystitis and pancreatitis could not be ruled out. LFTs and Lipase are additionally elevated. 1) Acute pancreatitis: improving with IV fluids, pain is controlled on Morphine , continue NPO for today lipase and AST/ALT trending down MRCP results reviewed, no filling defects, no stones in CBD, stones seen in gall bladder appreciate GI consult consult general surgery for recommendations regarding cholecystectomy 2) DM - Placed on SS 3) HTN - Cont Metoprolol 4) HPL - statin held due to acute transaminitis 5) DVT prophylaxis: heparin
[2017-01-19 15:49] VITALS: BP 120/67; PULSE 85; TEMP 37.9; O2SAT 95
[2017-01-19 16:00] VITALS: O2SAT 95
--- NOTE | 2017-01-19 17:44 | CONSULTATION REPORT ---
DATE OF CONSULTATION: 01/19/2017 BRIEF NOTE SUBJECTIVE: Seen at the request of Dr. Bee for what classically appears to be a gallstone pancreatitis. I saw Gia a few hours ago where the patient was being visited by her family, therefore I did not go pretty much an extensive history and physical at that time, but highlight what appears to be on a clinical basis and chemical case of a gallstone pancreatitis. I reviewed the labs and the MRCP report and at this point, my suspicion is that the patient passed a small stone. Clinically, she still a bit nauseated and she has minimal back pain, her ileostomy has been working. At this point, certainly our tentative plan is to proceed with laparoscopic cholecystectomy, intraoperative cholangiogram and hopefully it could be done in the next day or so once her acute inflammatory process of the pancreas results on a clinical basis. Will reevaluate her more thoroughly and let the family visit with her at this time. She is in no acute distress. VADIM
[2017-01-19 22:45] VITALS: BP 116/68; PULSE 97; TEMP 38.1; O2SAT 95
[2017-01-19 22:50] VITALS: TEMP 37.8
[2017-01-19 23:20] VITALS: TEMP 37.7
[2017-01-20] VITALS (13 sets, daily range): BP systolic 105–124; BP diastolic 63–79; PULSE 69–82; TEMP 36.2–38; O2SAT 91–98
[2017-01-20] MEDS ORDERED: ACETAMINOPHEN IV 650 MG in EMPTY BAG 0 ML IV PRN (00:30)
[2017-01-20] MEDS ORDERED: PIPERACILL/TAZOBAC IV 3.375 GM in DEXTROSE 5% 100ML IV ONE (01:00)
[2017-01-20] MEDS ORDERED: PIPERACILL/TAZOBAC CONSULT ACTIVE PRN (01:00)
--- NOTE | 2017-01-20 01:09 | Progress Note ---
Progress Note Date of Service January 20, 2017. Progress Note Patient has been febrile since approx 1600. Blood cultures, CMP, lipase, CBC, UA and CXR ordered. Zosyn started.
[2017-01-20 01:14] LABS: BASO % 0.1 %; BASO ABS # 0.01 K/uL (0-0.2); COMPLETE YES; EOS % 0.2 %; HEMATOCRIT 38.2 % (37-47); IG% 0.3 %; LYMPH % 7.5 %; LYMPH ABS # 0.79 K/uL (1.2-3.4); MEAN CELL VOLUME 93.2 fL (80-100); MEAN CORPUSCULAR HEMOGLOBIN 31.2 pg (25-34); MEAN CORPUSCULAR HGB CONC 33.5 g/dl (32-36); MEAN PLATELET VOLUME 10.7 fL (7.4-10.4); MONO % 6.9 %; PLATELET COUNT 127 K/uL (130-400); WHITE BLOOD COUNT 10.51 K/uL (4.8-10.8)
[2017-01-20 01:38] LABS: ALB/GLOB RATIO 0.9 (0.9-2); BUN/CREATININE RATIO 15.1 (10-20); CALCIUM 8.2 mg/dl (8.5-10.1); CREATININE 0.82 mg/dl (0.60-1.20); POTASSIUM 3.9 mmol/L (3.5-5.1)
[2017-01-20 01:44] LABS: URINE APPEARANCE CLEAR (CLEAR); URINE BILIRUBIN NEG (NEG); URINE COLOR DK YELLOW; URINE EPITHELIAL CELL AUTO 20-30 /lpf (0-5); URINE NITRITE NEG (NEG); URINE SPECIFIC GRAVITY 1.024 (1.000-1.030); UROBILINOGEN NEG (NEG); ZZUR CULT IF INDIC CLEAN CATCH YES
[2017-01-20 01:46] LABS: MANUAL MICROSCOPIC REQUIRED? NO; REVIEW REQ? NO
[2017-01-20 02:02] LABS: LYME DISEASE AB IGG NEG (NEG); LYME DISEASE AB IGM NEG (NEG)
[2017-01-20 03:37] LABS: INFLUENZA A PCR Neg for Influ A (NEG); INFLUENZA B PCR Neg for Influ B (NEG)
[2017-01-20] MEDS: SODIUM CHLORIDE 0.9% 1000ML 1,000 ML IV SCH ×4 (05:03→23:34)
[2017-01-20] MEDS: HEPARIN SOD 5000 UNIT/0.5 ML CARP SQ SCH ×3 (05:24→21:51)
[2017-01-20] MEDS: PIPERACILL/TAZOBAC IV 3.375 GM in DEXTROSE 5% 100ML IV SCH ×3 (05:24→14:06)
[2017-01-20] MEDS ORDERED: PIPERACILL/TAZOBAC IV 3.375 GM in DEXTROSE 5% 100ML 100 ML IV SCH (06:00)
[2017-01-20] MEDS: INSULIN ASPART 100 UNITS/ML 3 ML PEN SC SCH ×4 (06:00→21:50)
--- NOTE | 2017-01-20 06:26 | CONSULTATION REPORT ---
DATE OF CONSULTATION: 01/19/2017 Seen in consultation yesterday and I wrote a brief note on her. SUMMARY: This is a 66-year-old female with a colon cancer, status post colostomy 2002 with subtotal colectomy and ileostomy approximately a year or so ago, diabetes, DVT, hypertension, developed acute abdominal pain with nausea and vomiting approximately 48 hours ago. She states she really did not eat anything out of the ordinary although in the remote past, she has had some trouble with feeling gassy especially with certain foods and she stays away from it. The symptoms persisted and she came into the Emergency Room where the findings were compatible of possibly some biliary pathology with acute possibly cholecystitis and pancreatitis. The liver enzymes were elevated as was the lipase. The ultrasound showed small stones in the gallbladder. She denies any nausea. The ileostomy has been working fine. She denies any chest pain and shortness of breath. FAMILY HISTORY: Positive for cancer, diabetes, hypertension, stroke and heart disease. SOCIAL HISTORY: Nonsmoker, nondrinker. ALLERGIES: SHE HAS AN ALLERGY TO LATEX. PRESENT MEDICINE: Include ascorbic acid, aspirin, Lipitor, vitamin D3, vitamin B12, Glucophage and metoprolol. REVIEW OF SYSTEMS: Pretty much unremarkable. Denies any ongoing changes in weight, any GI or symptoms other than what developed now. Denies any cardiac or pulmonary symptoms, neuromuscular symptoms. PHYSICAL EXAMINATION: GENERAL: At this point, the patient is sitting at the side of bed, in no acute distress. She denies any back pain, although she did have some discomfort and she states it was associated with her bed. EYES: Sclera is nonicteric. NECK: There is no cervical lymphadenopathy. HEART AND LUNGS: Clear. ABDOMEN: The ileostomy is working fine and there is no upper abdominal incisions appreciated. EXTREMITIES: Grossly normal. VITAL SIGNS: Her last vitals showed a temperature of 37.9. Last night, she was started on antibiotics. This morning it is 36.6. LABORATORY LOERA: Her BUN is 12, creatinine 0.82. This morning labs, her liver enzymes are pretty much normalizing as is her amylase down to 333. Hemoglobin was 10.51. She does have an ongoing left shift. At this point, I think she pretty much has gotten over her symptoms of pancreatitis and I suspect this I stated yesterday, this is classical gallstone pancreatitis and she may have passed a stone. Therefore, proceed with laparoscopic cholecystectomy, intraoperative cholangiogram, possible open. Risks and complications were explained to the patient, includes bleeding, infection, converting to an open procedure and she would like to proceed accordingly. She is on subQ heparin and given her DVT history, I think I will continue on that every 8 hours. VADIM
--- NOTE | 2017-01-20 07:14 | DIAGNOSTIC IMAGING REPORT ---
CHEST ONE VIEW PORTABLE CLINICAL HISTORY: Fever COMPARISON STUDY: 01/18/2017 FINDINGS: The cardiac and mediastinal contours are normal. There is no evidence of focal pulmonary consolidation. There is no evidence of failure. No pleural effusions are visualized.[ IMPRESSION: No active disease in the chest. Electronically signed by: Elcieo Castle M.D. 01/20/2017 7:12 AM Dictated Date/Time: 01/20/2017 7:12 AM
--- NOTE | 2017-01-20 07:38 | Clinical Documentation Query ---
ANA Storm : CLINICAL DOCUMENTATION QUERY Patient is a 66 year old female admitted for evaluation and treatment of abdominal pain. CT and MRCP both with findings characteristic of hepatitis, pancreatitis, and/or cholecystitis. Documentation has included these diagnoses but lacks the qualifier of acuity except in the case of pancreatitis. As clinically appropriate, consider documentation as suggested below in order to capture the acuity and therefore severity of illness and risk of mortality associated with these diagnoses. Thank you. In your clinical opinion is this patient being managed for: ( ) Acute cholecystitis (pending laparascopic cholecystectomy) and acute hepatitis in the setting of acute gallstone pancreatitis ( x ) Other explanation of clinical findings (Please Explain) Acute and chronic choleystistis, pancreatitis, no hepatitis, see my note ( ) Unable to determine (Please Define) ( ) Need to Discuss ( ) Not Agree The medical record reflects the following clinical findings, treatment, and risk factors. Clinical Indicators: As above, abdominal pain, CT/MRCP results, transaminitis, elevated lipase Treatment: Serial labs, IVF, surgical consultation, for laparoscopic cholecystectomy. Risk Factors: Age, dietary, genetic predisposition Please clarify and document your clinical opinion in the progress notes and discharge summary. Terms such as "probable", "suspected", "likely", "questionable", "possible", or "still to be ruled out" are acceptable. IF IN AGREEMENT, YOU MUST DOCUMENT ABOVE DIAGNOSTIC STATEMENT IN DAILY PROGRESS NOTES AND DISCHARGE SUMMARY. This document is not part of the patient's record. Thank You, Garcia Mac, MEGA [phone]
[2017-01-20] MEDS: MoRPHine SULFATE 4 MG/ML 1 ML CARP\\VIAL IV PRN (07:51)
[2017-01-20] MEDS ORDERED: LIDOCAINE/EPINEPHRINE 1% 20 ML VIAL ONE (13:59)
[2017-01-20] MEDS ORDERED: CONRAY 60% 50 ML VIAL ONE (13:59)
[2017-01-20] MEDS ORDERED: ONDANSETRON INJ 2 MG/ML 2 ML VIAL IV PRN (14:00)
[2017-01-20] MEDS ORDERED: ATROPINE SULFATE 0.1 MG/ML 5ML SYR IV PRN (14:00)
[2017-01-20] MEDS ORDERED: HYDROmorphone INJ 2 MG/ML SYR/VIAL IV PRN (14:00)
[2017-01-20] MEDS ORDERED: PHENYLEPHRINE 100MCG/ML 5ML SYR IV PRN (14:00)
[2017-01-20] MEDS ORDERED: EpHEDrine SULFATE INJ 50 MG/ML AMP IV PRN (14:00)
[2017-01-20] MEDS ORDERED: FENTANYL CITRATE INJ 50 MCG/1 ML 2 ML VIAL ONE ×3 (14:02→14:46)
[2017-01-20] MEDS ORDERED: MIDAZOLAM HCL 1 MG/ML 2ML VIAL ONE (14:03)
--- NOTE | 2017-01-20 14:27 | Medical Student: [facility] ---
Med Student Progress Note Date of Service January 20, 2017. Subjective Pt evaluation today including: conversation w/ patient Pain: 6 PO Intake: npo Voiding: no voiding problems Ms Gia Bernal is a 66 yo female on hospital day 3 with acute pancreatitis. She began to have epigastric abdominal pain two days ago, which she attributed to food she had eaten. The pain worsened throughout the day and she presented to the ED two nights ago. Since that time, she has been NPO and her epigastric pain has gradually improved. She was found to have multiple gall stones, and MRCP did not show a blockage of the bile duct, but labs indicate transaminitis and there is perihepatic and pericystic fluid on imaging. She notes she slept well last night and has decreased pain today. She had a fever last night, but her fever broke and she feels much better this morning. She was seen by general surgery and will have a cholecystectomy today due to multiple gall stones seen on imaging. She has several questions about the procedure, but overall is feeling much better. She denies headache, fever, chills, n/v, constipation or diarrhea. Her last "good" bowel movement was thursday morning, although she has had some small bms since being admitted. She notes dark black stool starting yesterday, which coincides with beginning taking PO iron. Review of Systems Constitutional: No chills, No fatigue, No fever, No sweats, No weakness, No weight loss Eyes: No problem reported ENT: No problem reported Respiratory: No problem reported Cardiac: No problem reported Abdomen: + pain (6/10 epigastric, improving), + problem reported (dark black stool in stoma), No constipation, No diarrhea, No vomiting Musculoskeletal: No problem reported Female : No problem reported Neurologic: No problem reported Psychiatric: No problem reported Heme: No problem reported Objective Vital Signs Date Time Temp Pulse Resp B/P Pulse Ox O2 Delivery O2 Flow Rate FiO2 01/20/17 12:12 36.2 16 109/66 93 Room Air 01/20/17 10:00 93 Room Air 01/20/17 08:02 Room Air 01/20/17 07:53 37.1 17 124/78 93 Room Air 01/20/17 05:03 36.6 01/20/17 01:37 37.9 01/20/17 00:04 38.0 01/19/17 23:20 37.7 01/19/17 23:15 Room Air 01/19/17 22:50 37.8 01/19/17 22:45 38.1 97 16 116/68 95 Room Air 01/19/17 19:22 Room Air 01/19/17 16:00 95 Room Air 01/19/17 15:49 37.9 85 18 120/67 95 Room Air Physical Exam Comments: Vitals: See above. General: Wd/wn. Resting comfortably, no acute distress. HEENT: NCAT, EOMI, PERRLA. No tenderness to palpation over frontal or maxillary sinuses. No anterior or posterior cervical lymphadenopathy. Mucus membranes moist. CV: S1, S2. No MRG. RRR. Pulses equal and intact in upper and lower extremities. Pulm: Lungs clear to auscultation in upper and lower lobes bilaterally. Abdomen: Soft, mild epigastric pain. No rebound pain. No pain in RUQ. Bowel sounds active. Ostomy with small amount of dark stool. Neuro/Psych. AOx3. Calm. Laboratory Results Last 24 Hours Test 01/19/17 18:12 01/20/17 00:03 01/20/17 00:45 01/20/17 01:13 Bedside Glucose 88 mg/dl 97 mg/dl White Blood Count 10.51 K/uL Red Blood Count 4.10 M/uL Hemoglobin 12.8 g/dL Hematocrit 38.2 % Mean Corpuscular Volume 93.2 fL Mean Corpuscular Hemoglobin 31.2 pg Mean Corpuscular Hemoglobin Concent 33.5 g/dl Platelet Count 127 K/uL Mean Platelet Volume 10.7 fL Neutrophils (%) (Auto) 85.0 % Lymphocytes (%) (Auto) 7.5 % Monocytes (%) (Auto) 6.9 % Eosinophils (%) (Auto) 0.2 % Basophils (%) (Auto) 0.1 % Neutrophils # (Auto) 8.93 K/uL Lymphocytes # (Auto) 0.79 K/uL Monocytes # (Auto) 0.73 K/uL Eosinophils # (Auto) 0.02 K/uL Basophils # (Auto) 0.01 K/uL RDW Standard Deviation 49.8 fL RDW Coefficient of Variation 14.5 % Immature Granulocyte % (Auto) 0.3 % Immature Granulocyte # (Auto) 0.03 K/uL Sodium Level 141 mmol/L Potassium Level 3.9 mmol/L Chloride Level 109 mmol/L Carbon Dioxide Level 24 mmol/L Anion Gap 8.0 mmol/L Blood Urea Nitrogen 12 mg/dl Creatinine 0.82 mg/dl Est Creatinine Clear Calc Drug Dose 78.1 ml/min Estimated GFR () 85.2 Estimated GFR (Non- 73.5 BUN/Creatinine Ratio 15.1 Random Glucose 109 mg/dl Calcium Level 8.2 mg/dl Total Bilirubin 0.9 mg/dl Aspartate Amino Transf (AST/SGOT) 85 U/L Alanine Aminotransferase (ALT/SGPT) 153 U/L Alkaline Phosphatase 60 U/L Total Protein 6.7 gm/dl Albumin 3.2 gm/dl Globulin 3.5 gm/dl Albumin/Globulin Ratio 0.9 Lipase 333 U/L Lyme Disease IgG Antibody NEG Lyme Disease IgM Antibody NEG Urine Color DK YELLOW Urine Appearance CLEAR Urine pH 5.0 Urine Specific [place] 1.024 Urine Protein NEG Urine Glucose (UA) NEG Urine Ketones 2+ Urine Occult Blood NEG Urine Nitrite NEG Urine Bilirubin NEG Urine Urobilinogen NEG Urine Leukocyte Esterase SMALL Urine WBC (Auto) 10-30 /hpf Urine RBC (Auto) 5-10 /hpf Urine Hyaline Casts (Auto) 1-5 /lpf Urine Epithelial Cells (Auto) 20-30 /lpf Urine Bacteria (Auto) NEG Test 01/20/17 01:17 01/20/17 06:14 01/20/17 11:42 Influenza Type A (RT-PCR) Neg for Influ A Influenza Type B (RT-PCR) Neg for Influ B Bedside Glucose 126 mg/dl 92 mg/dl Assessment and Plan Assessment and Plan: Ms Gia Bernal is a pleasant 66 yo female on hospital day 3 with acute pancreatitis and cholelithiasis, and a history of colon cancer s/p colostomy. She is now awaiting cholecyctectomy this afternoon. Individual assessment and plan are as follows: 1. Acute pancreatitis: Likely due to cholelithiasis, although imaging with MRCP and CT indeterminant. Will undergo cholecystectomy today with cholangiogram. Clinically improving. Lipase back to normal. LFTs remain elevated today. GI ( [facility]) on board. Ddx includes gall stone pancreatitis vs hepatitis. 2. HLD: hold statin due to elevated LFTs 3. DM: Sliding scale insulin. NPO today, transition to diabetic diet following bowel rest. 4. HTN: Well controlled on metoprolol. No change needed. 5. DVT Proph: Heparin sq q8. Held for surgery. 6. Dispo: [facility] today. Continue bowel rest through tomorrow. Gradually reintroduce regular diet after 3 days of normal lipase. Continued [facility] stay due to: multiple IV medications needed, other ( cholecystectomy today. ) Discharge planning: home
--- NOTE | 2017-01-20 14:52 | Progress Note ---
Subjective Date of Service: January 20, 2017. Subjective Pt evaluation today including: conversation w/ patient, physical exam, lab review, review of inpatient medication list Pain: almost no pain this AM PO Intake: NPO for the OR Voiding: no voiding problems feeling better this AM, minimal pain today, appetite returning plan for OR today, lap kip and cholangiogram answered questions for her and family Review of Systems Abdomen: + pain (mild) All Other Systems: Reviewed and Negative Medications Current Inpatient Medications Medications (Trade) Dose Ordered Sig/Ana Route Start Time Stop Time Status Last Admin Dose Admin Ioversol (Optiray 320) 100 ml UD PRN IV 01/18/17 19:30 01/22/17 19:29 Heparin Sodium (Porcine) (Heparin Sq 5000 Unit/0.5ml) 5,000 unit Q8H SQ 01/19/17 06:00 02/18/17 05:59 01/20/17 05:24 5,000 UNIT Al Hydrox/Mg Hydrox/Simethicone (Maalox Max Susp) 15 ml Q4H PRN PO 01/18/17 22:00 02/17/17 21:59 Magnesium Hydroxide (Milk Of Magnesia Susp) 30 ml Q6H PRN PO 01/18/17 22:00 02/17/17 21:59 Polyethylene (Miralax Powder Packet) 17 gm DAILY PRN PO 01/18/17 22:00 02/17/17 21:59 Zolpidem Tartrate (Ambien Tab) 5 mg HSZ PRN PO 01/18/17 22:00 02/17/17 21:59 Ondansetron HCl (Zofran Inj) 4 mg Q6H PRN IV 01/18/17 22:00 02/17/17 21:59 01/19/17 11:39 4 MG Insulin Aspart (novoLOG ASPART) SLIDING SCALE G... Q6 SC 01/19/17 00:00 02/18/17 00:00 Metoclopramide HCl (Reglan Inj) 5 mg Q6H PRN IV 01/18/17 22:15 02/17/17 22:14 Glucose (Glucose 40% Gel) 15-30 GRAMS 15 GRAMS... UD PRN PO 01/19/17 00:15 02/18/17 00:14 Glucose (Glucose Chew Tab) 4-8 Tablets 4 Tabl... UD PRN PO 01/19/17 00:15 02/18/17 00:14 Dextrose (Dextrose 50% 50ML Syringe) 25-50ML OF 50% DW IV FOR... UD PRN IV 01/19/17 00:15 02/18/17 00:14 Glucagon 1 mg 1 mg UD PRN SQ 01/19/17 00:15 02/18/17 00:14 Sodium Chloride (Nss 1000ml) 1,000 ml @ 150 mls/hr Q6H40M IV 01/19/17 01:45 02/18/17 01:44 01/20/17 10:23 150 MLS/HR Morphine Sulfate 3 mg 3 mg Q3H PRN IV 01/19/17 03:30 02/02/17 03:29 01/20/17 07:51 3 MG Acetaminophen 650 mg/Empty Bag 65 ml @ 260 mls/hr Q6H PRN IV 01/20/17 00:30 02/19/17 00:29 01/20/17 01:38 260 MLS/HR Piperacillin Sod/ Tazobactam Sod/ Dextrose (Zosyn Iv/D5 100ml) 115 ml @ 28.75 mls/ hr Q8H IV 01/20/17 06:00 01/30/17 05:59 01/20/17 14:06 28.75 MLS/HR Piperacillin Sod/ Tazobactam Sod (Consult) 1 ea UD PRN N/A 01/20/17 01:00 02/19/17 00:59 Hydromorphone HCl (Dilaudid Inj) 0.5 mg Q5M PRN IV 01/20/17 14:00 01/20/17 19:00 Ondansetron HCl (Zofran Inj) 4 mg ONE PRN IV 01/20/17 14:00 01/20/17 19:00 Ephedrine Sulfate (EpHEDrine SULFATE INJ) 5 mg Q5M PRN IV 01/20/17 14:00 01/20/17 19:00 Atropine Sulfate (Atropine Sulfate 0.1MG/Ml Inj) 0.5 mg Q1M PRN IV 01/20/17 14:00 01/20/17 19:00 Phenylephrine HCl (Vivek-Synephrine 500MCG/5ML Syr) 100 mcg Q5M PRN IV 01/20/17 14:00 01/20/17 19:00 Objective Vital Signs Date Time Temp Pulse Resp B/P Pulse Ox O2 Delivery O2 Flow Rate FiO2 01/20/17 12:12 36.2 16 109/66 93 Room Air 01/20/17 10:00 93 Room Air 01/20/17 08:02 Room Air 01/20/17 07:53 37.1 17 124/78 93 Room Air 01/20/17 05:03 36.6 01/20/17 01:37 37.9 01/20/17 00:04 38.0 01/19/17 23:20 37.7 01/19/17 23:15 Room Air 01/19/17 22:50 37.8 01/19/17 22:45 38.1 97 16 116/68 95 Room Air 01/19/17 19:22 Room Air 01/19/17 16:00 95 Room Air 01/19/17 15:49 37.9 85 18 120/67 95 Room Air Physical Exam General Appearance: WD/WN, no apparent distress Eyes: normal inspection, EOMI, sclerae normal Respiratory/Chest: chest non-tender, lungs clear, normal breath sounds, no respiratory distress, no accessory muscle use Cardiovascular: regular rate, rhythm, no edema, no gallop, no JVD, no murmur Abdomen: normal bowel sounds, soft, no organomegaly, + tenderness (epigastric, minimal, no rebound or rigidity) Extremities: normal range of motion, non-tender, normal inspection, no pedal edema, no calf tenderness Neurologic/Psychiatric: department chairperson II-XII nml as tested, no motor/sensory deficits, alert, normal mood/affect, oriented x 3 Skin: normal color, warm/dry, no rash Lymphatic: no adenopathy Laboratory Results Last 24 Hours Test 01/19/17 18:12 01/20/17 00:03 01/20/17 00:45 01/20/17 01:13 Bedside Glucose 88 mg/dl 97 mg/dl White Blood Count 10.51 K/uL Red Blood Count 4.10 M/uL Hemoglobin 12.8 g/dL Hematocrit 38.2 % Mean Corpuscular Volume 93.2 fL Mean Corpuscular Hemoglobin 31.2 pg Mean Corpuscular Hemoglobin Concent 33.5 g/dl Platelet Count 127 K/uL Mean Platelet Volume 10.7 fL Neutrophils (%) (Auto) 85.0 % Lymphocytes (%) (Auto) 7.5 % Monocytes (%) (Auto) 6.9 % Eosinophils (%) (Auto) 0.2 % Basophils (%) (Auto) 0.1 % Neutrophils # (Auto) 8.93 K/uL Lymphocytes # (Auto) 0.79 K/uL Monocytes # (Auto) 0.73 K/uL Eosinophils # (Auto) 0.02 K/uL Basophils # (Auto) 0.01 K/uL RDW Standard Deviation 49.8 fL RDW Coefficient of Variation 14.5 % Immature Granulocyte % (Auto) 0.3 % Immature Granulocyte # (Auto) 0.03 K/uL Sodium Level 141 mmol/L Potassium Level 3.9 mmol/L Chloride Level 109 mmol/L Carbon Dioxide Level 24 mmol/L Anion Gap 8.0 mmol/L Blood Urea Nitrogen 12 mg/dl Creatinine 0.82 mg/dl Est Creatinine Clear Calc Drug Dose 78.1 ml/min Estimated GFR () 85.2 Estimated GFR (Non- 73.5 BUN/Creatinine Ratio 15.1 Random Glucose 109 mg/dl Calcium Level 8.2 mg/dl Total Bilirubin 0.9 mg/dl Aspartate Amino Transf (AST/SGOT) 85 U/L Alanine Aminotransferase (ALT/SGPT) 153 U/L Alkaline Phosphatase 60 U/L Total Protein 6.7 gm/dl Albumin 3.2 gm/dl Globulin 3.5 gm/dl Albumin/Globulin Ratio 0.9 Lipase 333 U/L Lyme Disease IgG Antibody NEG Lyme Disease IgM Antibody NEG Urine Color DK YELLOW Urine Appearance CLEAR Urine pH 5.0 Urine Specific [place] 1.024 Urine Protein NEG Urine Glucose (UA) NEG Urine Ketones 2+ Urine Occult Blood NEG Urine Nitrite NEG Urine Bilirubin NEG Urine Urobilinogen NEG Urine Leukocyte Esterase SMALL Urine WBC (Auto) 10-30 /hpf Urine RBC (Auto) 5-10 /hpf Urine Hyaline Casts (Auto) 1-5 /lpf Urine Epithelial Cells (Auto) 20-30 /lpf Urine Bacteria (Auto) NEG Test 01/20/17 01:17 01/20/17 06:14 01/20/17 11:42 Influenza Type A (RT-PCR) Neg for Influ A Influenza Type B (RT-PCR) Neg for Influ B Bedside Glucose 126 mg/dl 92 mg/dl Assessment and Plan 66 y/o F Hx Colon CA - colostomy 2012, DM, DVT, HTN. Visiting from the [place] area and developed acute abdominal pain, nausea and vomiting. Symptoms persisted and she presented to the hospital. A CT abdomen was obtained and is equivocal, favoring a possible hepatitis although cholecystitis and pancreatitis could not be ruled out. LFTs and Lipase are additionally elevated. 1) Acute gallstone pancreatitis with acute on chronic cholecystitis: pancreatitis nearly resolved, lipase normal, minimal pain, appetite returning MRCP results reviewed, no filling defects, no stones in CBD, stones seen in gall bladder appreciate GI consult Lap cholecystectomy on 01/20 - intraoperative findings, acute and chronic cholecystitis, pancreatitis 2) DM - Placed on SS 3) HTN - Cont Metoprolol 4) HPL - statin held due to acute transaminitis 5) DVT prophylaxis: heparin Continued [facility] stay due to: multiple IV medications needed, other ( cholecystectomy today. ) Discharge planning: home
[2017-01-20] MEDS ORDERED: MoRPHine SULFATE PF 1 MG/ML 10 ML AMP/VIAL ONE (15:16)
[2017-01-20] MEDS ORDERED: ROCURONIUM BROMIDE 10 MG/ML 5 ML VIAL ONE (15:26)
[2017-01-20] MEDS ORDERED: PROPOFOL IV EMULSION 10 MG/ML 20 ML VIAL IV ONE (15:56)
[2017-01-20] MEDS ORDERED: ONDANSETRON INJ 2 MG/ML 2 ML VIAL ONE (15:56)
[2017-01-20] MEDS ORDERED: LIDOCAINE HCL 2% 2 ML VIAL (20MG/ML) ONE (15:56)
[2017-01-20] MEDS ORDERED: GLYCOPYRROLATE INJ 0.2 MG/ML VIAL ONE (15:57)
--- NOTE | 2017-01-20 15:58 | DIAGNOSTIC IMAGING REPORT ---
INTRAOPERATIVE CHOLANGIOGRAM CLINICAL HISTORY: CHOLANGIOGRAM COMPARISON STUDY: MRCP January 19, 2017. FLUOROSCOPY TIME: 3 seconds. FINDINGS: 2 fluoroscopic images of the right upper quadrant were obtained during an intraoperative cholangiogram. There is no biliary ductal dilatation. There is contrast within the duodenum. Evaluation is somewhat difficult given overlying spine but no filling defects are identified to suggest choledocholithiasis. There is possible extraluminal contrast projecting inferior to the duodenum. IMPRESSION: 1. No evidence of choledocholithiasis. 2. Contrast projecting inferior to the duodenum along the proximal aspect of the catheter that could be on the patient or within the patient. Electronically signed by: Shahriar Traore M.D. 01/20/2017 3:57 PM Dictated Date/Time: 01/20/2017 3:55 PM
--- NOTE | 2017-01-20 16:22 | [facility] Post Operative Brief Note ---
Immediate Operative Summary Operative Date January 20, 2017. Pre-Operative Diagnosis Gallstone pancreatitis. Post-Operative Diagnosis Same as preop.acute and chronic cholecystitis with secondary pancreatitis Procedure(s) Performed Laparoscopic Cholecystectomy with Cholangiogram Surgeon Dr. Lundy Bods Developer Surgeon(s) Dr. Beard Estimated Blood Loss 50 Findings accc with abdominal adhesions Specimens A: Gallbladder 1: Routine culture and sensitivity, anaerobic, gram stain from gallbladder drainage. Drains #19 carmelita per stab
--- NOTE | 2017-01-20 17:17 | Anesthesiology Progress Note ---
Anesthesia Post Op Note Date & Time January 20, 2017 at 17:17 Vital Signs Pain Intensity: 0 Vital Signs Past 12 Hours Date Time Temp Pulse Resp B/P Pulse Ox O2 Delivery O2 Flow Rate FiO2 01/20/17 17:03 81 17 01/20/17 17:03 81 17 98 01/20/17 17:02 122/50 01/20/17 16:58 85 20 01/20/17 16:58 85 20 99 01/20/17 16:58 36.6 83 18 122/50 97 Nasal Cannula 2 01/20/17 16:57 127/49 01/20/17 16:53 79 14 01/20/17 16:53 79 14 100 01/20/17 16:52 124/51 01/20/17 16:48 83 18 01/20/17 16:48 82 18 100 01/20/17 16:47 118/50 01/20/17 16:43 77 16 01/20/17 16:43 77 16 100 01/20/17 16:42 134/52 01/20/17 16:41 79 16 01/20/17 16:41 78 16 100 01/20/17 16:37 137/55 01/20/17 16:36 87 16 01/20/17 16:36 89 16 97 01/20/17 16:32 125/56 01/20/17 16:31 85 18 100 01/20/17 16:31 85 18 01/20/17 16:27 124/54 01/20/17 16:26 37.0 94 16 124/54 100 Mask 10 01/20/17 12:12 36.2 16 109/66 93 Room Air 01/20/17 10:00 93 Room Air 01/20/17 08:02 Room Air 01/20/17 07:53 37.1 17 124/78 93 Room Air Notes Mental Status: alert / awake / arousable, participated in evaluation Pt Amnestic to Procedure: Yes Nausea / Vomiting: adequately controlled Pain: adequately controlled Airway Patency, RR, SpO2: stable & adequate BP & HR: stable & adequate Hydration State: stable & adequate Anesthetic Complications: no major complications apparent
[2017-01-20] MEDS ORDERED: NURSING VERBAL MED ORDER ONE (17:30)
[2017-01-21] VITALS (7 sets, daily range): BP systolic 118–124; BP diastolic 65–71; PULSE 66–84; TEMP 36.5–37.7; O2SAT 93–96
[2017-01-21] MEDS: PIPERACILL/TAZOBAC IV 3.375 GM in DEXTROSE 5% 100ML IV SCH ×3 (05:25→20:59)
[2017-01-21] MEDS: HEPARIN SOD 5000 UNIT/0.5 ML CARP SQ SCH (05:26)
[2017-01-21] MEDS: MoRPHine SULFATE 4 MG/ML 1 ML CARP\\VIAL IV PRN ×2 (06:31→18:02)
[2017-01-21] MEDS: SODIUM CHLORIDE 0.9% 1000ML 1,000 ML IV SCH (06:34)
--- NOTE | 2017-01-21 07:01 | OPERATIVE REPORT ---
DATE OF OPERATION: 01/20/2017 SURGEON: Isaac Lundy MD WEB FEEDER: Ilia Beard MD PREOPERATIVE DIAGNOSES: Chronic cholecystitis, cholelithiasis with a secondary pancreatitis. POSTOPERATIVE DIAGNOSES: Acute on chronic cholecystitis, cholelithiasis, secondary pancreatitis, and abdominal adhesions. PROCEDURE: Laparoscopic cholecystectomy, intraoperative cholangiogram. SUMMARY: The patient was brought in to the operating room theater. The patient had an ileostomy which the bag was removed. We placed a 4 x 4 over the ostomy itself and placed an Op-Site and then under general anesthetic, the abdomen was prepped with Betadine solution and properly draped. The patient had multiple previous surgeries, but our intent was to try to see if we could enter the abdomen. We made an incision approximately 3 inches above the umbilical area in the midline incision that started about that level, went subcutaneously to the fascia. We entered in the fascia, but could not enter the abdomen; it seemed like any plane we would try we were unsuccessful even enlarging the incision that I could place a finger and do the dissection, but it seemed to me that every time I was dissecting I was probably in the preperitoneal space. We made an incision eventually that was approximately an inch and a half long. At this point, we elected then to place another incision, go to an area that had not been violated at least by an incision in the subcostal area on the right which we did. We went through subcutaneous tissue. We entered the anterior rectus sheath, then eventually we were able to get into the peritoneal cavity. Once we entered the peritoneal cavity, we identified the patient had a significant amount of fluid that was under pressure. It appeared to be bilious in nature and slightly hemorrhagic. We suctioned this out and then we placed a 2-0 Dexon in a running fashion to control the pneumoperitoneum by placing a Ce cannula in that area. Once we were able to establish the pneumoperitoneum and placing the camera, we could see that we were right on top of the liver, could not identify the gallbladder. There were adhesions from the edge of the liver to the anterior abdominal wall. We tried to take some of these adhesions down, some were stronger than others. At this point, once we had that established, we were able to place a 5-mm mid clavicular port subcostally and with that in the epigastric port, we were able to maneuver it and free up a lot of the adhesions finally. Another 5-mm subcostal port was placed along with a 5-mm port in the original entry site. Attempted entry site in the umbilical area. We were able then to maneuver and identified a really tense gallbladder. The wall was quite edematous as we grabbed it, certainly bowel came out of it that was quite dark and concentrated, that was under pressure. I tried to aspirate it, but we were really unsuccessful to drain due to the viscosity of this bowel. We dissected pretty much bluntly down on the malvin hepatis area and the triangle of [place], but identified that the patient had a significant amount of what appeared to be almost hemorrhagic pancreatitis type of pattern, almost motor oil in the gallbladder fossa and around the fatty tissue. We were able then to identify the cystic artery, which was coursing anterior to the liver to the cystic duct which was small. We clipped it proximally twice, once distally and divided. Cystic duct was identified, I clipped it proximally. A small opening in the cystic duct was made. A #4 ureteral catheter transversing the abdominal wall was positioned in the cystic duct. We used 10-mm clips to hold it in place. Serial x-rays were taken, showed the common bile duct to be a little bit abnormal size due to probably in the passage of the stone. I could not identify any filling defects. Once this, we had free flow into the duodenum. At this point, we removed the cholangiocath and secured the cystic duct with the Wick appliers x2. We identified and elevated the gallbladder out and identified what appeared to be probably some collateral branches of the cystic artery. We clipped it proximally as it were coming out of the liver bed and off the gallbladder fossa. Most of the dissection of the gallbladder was usually by blunt. There was a significant amount of necrotic tissue and edema. Once we had freed this, we placed it in an Endopouch and took it out intact through the epigastric port. Cultures were taken. The subhepatic and suprahepatic air was then suctioned out copiously. Bleeding was acceptable. There was nothing significant, but I elected to drain the subhepatic area with a 19 Cleve drain, taken out to the epigastric area and taken out of right flank, placed subhepatically. The area was then checked for hemostasis. We checked all the sites as far as bleeding and there were no evidence of any bleeding. Wounds were closed with fascial stitches for the epigastric and the supraumbilical area with a [id number] #1 PDS, abdoul for skin edges. Dressing was applied. The procedure was tolerated well by the patient. Estimated blood loss approximately 50 mL. The patient was taken to recovery room in good condition. I attest to the content of the Intraoperative Record and any orders documented therein. Any exceptions are noted below. MTDD
--- NOTE | 2017-01-21 07:46 | Surgery Progress Note ---
Surgery Progress Note Date of Service January 21, 2017. Subjective Post OP Day: 1 + feeling well, + flatus, + pain controlled, No nausea, No vomiting Patient sitting in chair during examination. Ms. Bernal reports that she is doing well since surgery. Reports mild abdominal discomfort. She tolerated a liquid diet yesterday for dinner. Denies nausea or vomiting. Objective Vital Signs: Date Time Temp Pulse Resp B/P Pulse Ox O2 Delivery O2 Flow Rate FiO2 01/21/17 03:44 37.0 84 16 119/65 96 Room Air 01/20/17 23:05 36.6 72 16 109/66 96 Room Air 01/20/17 20:26 36.9 79 18 119/79 97 Nasal Cannula 2.0 01/20/17 19:45 Nasal Cannula 2.0 01/20/17 19:27 36.8 73 16 105/63 96 Nasal Cannula 2.0 01/20/17 18:27 36.7 69 16 111/70 98 Nasal Cannula 2.0 01/20/17 17:55 36.7 72 16 113/65 96 Nasal Cannula 2.0 01/20/17 17:37 91 Nasal Cannula 2.0 01/20/17 17:25 Nasal Cannula 2.0 01/20/17 17:25 36.8 82 16 116/65 91 Nasal Cannula 2.0 01/20/17 17:03 81 17 01/20/17 17:03 81 17 98 01/20/17 17:02 122/50 01/20/17 16:58 85 20 01/20/17 16:58 85 20 99 01/20/17 16:58 36.6 83 18 122/50 97 Nasal Cannula 2 01/20/17 16:57 127/49 01/20/17 16:53 79 14 01/20/17 16:53 79 14 100 01/20/17 16:52 124/51 01/20/17 16:48 83 18 01/20/17 16:48 82 18 100 01/20/17 16:47 118/50 01/20/17 16:43 77 16 01/20/17 16:43 77 16 100 01/20/17 16:42 134/52 01/20/17 16:41 79 16 01/20/17 16:41 78 16 100 01/20/17 16:37 137/55 01/20/17 16:36 87 16 01/20/17 16:36 89 16 97 01/20/17 16:32 125/56 01/20/17 16:31 85 18 100 01/20/17 16:31 85 18 01/20/17 16:27 124/54 01/20/17 16:26 37.0 94 16 124/54 100 Mask 10 01/20/17 12:12 36.2 16 109/66 93 Room Air 01/20/17 10:00 93 Room Air 01/20/17 08:02 Room Air 01/20/17 07:53 37.1 17 124/78 93 Room Air Physical Exam: Cleve drainage (175 mL (01/20/17); 90 mL of serosang drainage so far today. ) General Appearance: WD/WN, no apparent distress Head: normocephalic, atraumatic Abdomen: normal bowel sounds, soft, + pertinent finding (Colostomy in place- functioning. ) Laboratory Results: Results Past 24 Hours Test 01/20/17 11:42 01/20/17 16:40 01/20/17 20:25 Range/Units Bedside Glucose 92 105 183 70-90 mg/dl Microbiology Results 01/20/17 Gram Stain, Received Pending 01/20/17 Bacterial Culture, Received Pending Assessment & Plan POD #1- s/p Laparoscopic Cholecystectomy with Intraoperative Cholangiogram. Patient is doing well- out of bed and in chair next to bed. Will check Lipase and LFTs. Tolerated liquid diet yesterday- diet advanced to Diabetes Type 2 diet. Pain controlled. Patient on IV Zosyn. Dr. Lundy in to see and examine patient. Will continue to follow.
[2017-01-21] MEDS: INSULIN ASPART 100 UNITS/ML 3 ML PEN SC SCH ×4 (09:03→20:58)
[2017-01-21] MEDS: ASPIRIN 81 MG ECTAB PO SCH (09:04)
[2017-01-21] MEDS: ATORVASTATIN 10 MG TAB PO SCH (09:05)
[2017-01-21] MEDS: METOPROLOL SUCC 25MG EXT REL TAB PO SCH (09:05)
[2017-01-21] MEDS: CYANOCOBALAMIN 500 MCG TAB (VIT B-12) PO SCH (09:05)
[2017-01-21] MEDS: ASCORBIC ACID 500 MG TAB PO SCH (09:06)
--- NOTE | 2017-01-21 12:07 | Medical Student: [facility] ---
Med Student Progress Note Date of Service January 21, 2017. Subjective Pt evaluation today including: conversation w/ patient, physical exam, chart review, lab review, review of studies Pain: 4 PO Intake: good Voiding: no voiding problems Ms Gia Bernal is a 66yo female on hospital day 4 with resolved acute pancreatitis and acute cholecystitis one day s/p cholecystectomy. She is doing well today. Notes good energy and was up walking around. She has some 4/10 RUQ abdominal discomfort well controlled with tylenol and morphine q3. She tolerated a liquid diet well this morning and is ready to start progression towards a more normal diet. She emptied her ostomy today which had continued dark stools. She denies fevers, chills, headache, nausea, vomiting, diarrhea, chest pain or shortness of breath. She was surprised to hear from Dr. Lundy that the gallbaldder was in such poor shape. Review of Systems Constitutional: No problem reported Eyes: No problem reported ENT: No problem reported Respiratory: No problem reported Cardiac: No problem reported Abdomen: + pain (RUQ post surgical), No GI bleeding, No constipation, No diarrhea, No nausea, No vomiting Musculoskeletal: No problem reported Female : No problem reported Neurologic: No problem reported Psychiatric: No problem reported Heme: No problem reported Skin: No problem reported Objective Vital Signs Date Time Temp Pulse Resp B/P Pulse Ox O2 Delivery O2 Flow Rate FiO2 01/21/17 09:06 93 Room Air 01/21/17 07:45 93 Room Air 01/21/17 07:40 37.7 79 14 118/70 93 Room Air 01/21/17 03:44 37.0 84 16 119/65 96 Room Air 01/20/17 23:05 36.6 72 16 109/66 96 Room Air 01/20/17 20:26 36.9 79 18 119/79 97 Nasal Cannula 2.0 01/20/17 19:45 Nasal Cannula 2.0 01/20/17 19:27 36.8 73 16 105/63 96 Nasal Cannula 2.0 01/20/17 18:27 36.7 69 16 111/70 98 Nasal Cannula 2.0 01/20/17 17:55 36.7 72 16 113/65 96 Nasal Cannula 2.0 01/20/17 17:37 91 Nasal Cannula 2.0 01/20/17 17:25 Nasal Cannula 2.0 01/20/17 17:25 36.8 82 16 116/65 91 Nasal Cannula 2.0 01/20/17 17:03 81 17 01/20/17 17:03 81 17 98 01/20/17 17:02 122/50 01/20/17 16:58 85 20 01/20/17 16:58 85 20 99 01/20/17 16:58 36.6 83 18 122/50 97 Nasal Cannula 2 01/20/17 16:57 127/49 01/20/17 16:53 79 14 01/20/17 16:53 79 14 100 01/20/17 16:52 124/51 01/20/17 16:48 83 18 01/20/17 16:48 82 18 100 01/20/17 16:47 118/50 01/20/17 16:43 77 16 01/20/17 16:43 77 16 100 01/20/17 16:42 134/52 01/20/17 16:41 79 16 01/20/17 16:41 78 16 100 01/20/17 16:37 137/55 01/20/17 16:36 87 16 01/20/17 16:36 89 16 97 01/20/17 16:32 125/56 01/20/17 16:31 85 18 100 01/20/17 16:31 85 18 01/20/17 16:27 124/54 01/20/17 16:26 37.0 94 16 124/54 100 Mask 10 01/20/17 12:12 36.2 16 109/66 93 Room Air Physical Exam Comments: Vitals: See above. General: Wd/wn. Resting comfortably, no acute distress. HEENT: NCAT, EOMI, PERRLA. Mucus membranes moist. CV: S1, S2. No MRG. RRR. Pulm: Lungs clear to auscultation in upper and lower lobes bilaterally. Abdomen: Soft, mild RUQ pain. No epigastric pain. No rebound pain. Bowel sounds active. Ostomy with small amount of dark stool, emptied today. Neuro/Psych. AOx3. Calm. Laboratory Results Last 24 Hours Test 01/20/17 16:40 01/20/17 20:25 01/21/17 08:08 01/21/17 09:37 Bedside Glucose 105 mg/dl 183 mg/dl 104 mg/dl Total Bilirubin 0.7 mg/dl Direct Bilirubin 0.2 mg/dl Aspartate Amino Transf (AST/SGOT) 42 U/L Alanine Aminotransferase (ALT/SGPT) 82 U/L Alkaline Phosphatase 52 U/L Total Protein 5.9 gm/dl Albumin 2.3 gm/dl Lipase 68 U/L Assessment and Plan Assessment and Plan: Ms Gia Bernal is a pleasant 66 yo female on hospital day 4 with acute pancreatitis and cholecystitis, post op day 1 s/p cholecystectomy, and a history of colon cancer s/p colostomy. Individual assessment and plan are as follows: 1. Acute pancreatitis: Resolved. Lipase wnl. Likely due to cholelithiasis/ cholecystitis, although imaging with MRCP and CT indeterminant. Intraoperative cholangiogram negative for retained stone. Clinically improving with minimal post surgical pain. Progress to diabetic diet. LFTs remain elevated today. GI ( [facility]) on board. 2. Acute cholecystitis: 1 day s/p cholecystectomy. Gall bladder noted to be acutely/chronically inflamed on inspection, path pending. Improving clinically with minimal post-op pain. 3. HLD: hold statin due to elevated LFTs, continue on discharge. 4. DM: Sliding scale insulin. NPO today, transition to diabetic diet following bowel rest. 5. HTN: Well controlled on metoprolol. No change needed. 6. Possible UTI: Dirty urine, asymptomatic. Will watch culture. Will treat if positive, likely asymptomatic bacteruria. 7. DVT Proph: Heparin sq q8. Held for surgery, will continue to hold due to lowered platelet count. Will trend CBC tomorrow. 8. Dispo: Post-op day 1 cholecystectomy, minimal pain. Transitioned to oral pain meds today. Discharge likely tomorrow to home. Continued [facility] stay due to: multiple IV medications needed, other ( cholecystectomy today. ) Discharge planning: home
--- NOTE | 2017-01-21 13:42 | Progress Note ---
Subjective Date of Service: January 21, 2017. Subjective Pt evaluation today including: conversation w/ patient, physical exam, lab review, conversation w/ analytics consultant, review of inpatient medication list Pain: mild RUQ PO Intake: improving, tolerated full liquids Voiding: no voiding problems patient doing quite well today, sat in chair for 4 hours, ambulated in hallway, eating better less pain today appreciate note from surgery Review of Systems Abdomen: + pain (RUQ) All Other Systems: Reviewed and Negative Medications Current Inpatient Medications Medications (Trade) Dose Ordered Sig/Ana Route Start Time Stop Time Status Last Admin Dose Admin Ioversol (Optiray 320) 100 ml UD PRN IV 01/18/17 19:30 01/22/17 19:29 Heparin Sodium (Porcine) (Heparin Sq 5000 Unit/0.5ml) 5,000 unit Q8H SQ 01/19/17 06:00 02/18/17 05:59 Future Hold 01/21/17 05:26 5,000 UNIT Al Hydrox/Mg Hydrox/Simethicone (Maalox Max Susp) 15 ml Q4H PRN PO 01/18/17 22:00 02/17/17 21:59 Magnesium Hydroxide (Milk Of Magnesia Susp) 30 ml Q6H PRN PO 01/18/17 22:00 02/17/17 21:59 Polyethylene (Miralax Powder Packet) 17 gm DAILY PRN PO 01/18/17 22:00 02/17/17 21:59 Zolpidem Tartrate (Ambien Tab) 5 mg HSZ PRN PO 01/18/17 22:00 02/17/17 21:59 Ondansetron HCl (Zofran Inj) 4 mg Q6H PRN IV 01/18/17 22:00 02/17/17 21:59 01/19/17 11:39 4 MG Metoclopramide HCl (Reglan Inj) 5 mg Q6H PRN IV 01/18/17 22:15 02/17/17 22:14 Glucose (Glucose 40% Gel) 15-30 GRAMS 15 GRAMS... UD PRN PO 01/19/17 00:15 02/18/17 00:14 Glucose (Glucose Chew Tab) 4-8 Tablets 4 Tabl... UD PRN PO 01/19/17 00:15 02/18/17 00:14 Dextrose (Dextrose 50% 50ML Syringe) 25-50ML OF 50% DW IV FOR... UD PRN IV 01/19/17 00:15 02/18/17 00:14 Glucagon (Glucagon Inj) 1 mg UD PRN SQ 01/19/17 00:15 02/18/17 00:14 Morphine Sulfate 3 mg 3 mg Q3H PRN IV 01/19/17 03:30 02/02/17 03:29 01/21/17 06:31 3 MG Acetaminophen 650 mg/Empty Bag 65 ml @ 260 mls/hr Q6H PRN IV 01/20/17 00:30 02/19/17 00:29 01/20/17 01:38 260 MLS/HR Piperacillin Sod/ Tazobactam Sod/ Dextrose (Zosyn Iv/D5 100ml) 115 ml @ 28.75 mls/ hr Q8H IV 01/20/17 06:00 01/30/17 05:59 01/21/17 13:19 28.75 MLS/HR Piperacillin Sod/ Tazobactam Sod (Consult) 1 ea UD PRN N/A 01/20/17 01:00 02/19/17 00:59 Ascorbic Acid (Vitamin C Tab) 1,000 mg DAILY PO 01/21/17 09:00 02/20/17 08:59 01/21/17 09:06 1,000 MG Aspirin (Ecotrin Tab) 81 mg DAILY PO 01/21/17 09:00 02/20/17 08:59 01/21/17 09:04 81 MG Atorvastatin Calcium (Lipitor Tab) 10 mg DAILY PO 01/21/17 09:00 02/20/17 08:59 01/21/17 09:05 10 MG Cyanocobalamin (Vitamin B-12 Tab) 1,000 mcg DAILY PO 01/21/17 09:00 02/20/17 08:59 01/21/17 09:05 1,000 MCG Metformin HCl (Glucophage Extended Rel Tab) 500 mg BID PO 01/20/17 21:00 02/19/17 20:59 Future hold Metoprolol Succinate (Toprol Xl Tab) 25 mg DAILY PO 01/21/17 09:00 02/20/17 08:59 01/21/17 09:05 25 MG Insulin Aspart (novoLOG ASPART) SLIDING SCALE G... ACHS SC 01/20/17 21:00 02/19/17 20:59 01/20/17 21:50 1 UNITS Oxycodone/ Acetaminophen (Percocet 5-325mg Tab) 1 tab Q4H PRN PO 01/21/17 11:15 02/04/17 11:14 Objective Vital Signs Date Time Temp Pulse Resp B/P Pulse Ox O2 Delivery O2 Flow Rate FiO2 01/21/17 09:06 93 Room Air 01/21/17 07:45 93 Room Air 01/21/17 07:40 37.7 79 14 118/70 93 Room Air 01/21/17 03:44 37.0 84 16 119/65 96 Room Air 01/20/17 23:05 36.6 72 16 109/66 96 Room Air 01/20/17 20:26 36.9 79 18 119/79 97 Nasal Cannula 2.0 01/20/17 19:45 Nasal Cannula 2.0 01/20/17 19:27 36.8 73 16 105/63 96 Nasal Cannula 2.0 01/20/17 18:27 36.7 69 16 111/70 98 Nasal Cannula 2.0 01/20/17 17:55 36.7 72 16 113/65 96 Nasal Cannula 2.0 01/20/17 17:37 91 Nasal Cannula 2.0 01/20/17 17:25 Nasal Cannula 2.0 01/20/17 17:25 36.8 82 16 116/65 91 Nasal Cannula 2.0 01/20/17 17:03 81 17 01/20/17 17:03 81 17 98 01/20/17 17:02 122/50 01/20/17 16:58 85 20 01/20/17 16:58 85 20 99 01/20/17 16:58 36.6 83 18 122/50 97 Nasal Cannula 2 01/20/17 16:57 127/49 01/20/17 16:53 79 14 01/20/17 16:53 79 14 100 01/20/17 16:52 124/51 01/20/17 16:48 83 18 01/20/17 16:48 82 18 100 01/20/17 16:47 118/50 01/20/17 16:43 77 16 01/20/17 16:43 77 16 100 01/20/17 16:42 134/52 01/20/17 16:41 79 16 01/20/17 16:41 78 16 100 01/20/17 16:37 137/55 01/20/17 16:36 87 16 01/20/17 16:36 89 16 97 01/20/17 16:32 125/56 01/20/17 16:31 85 18 100 01/20/17 16:31 85 18 01/20/17 16:27 124/54 01/20/17 16:26 37.0 94 16 124/54 100 Mask 10 Physical Exam General Appearance: no apparent distress, + obese Neck: supple, no adenopathy, no JVD, trachea midline Respiratory/Chest: chest non-tender, lungs clear, normal breath sounds, no respiratory distress, no accessory muscle use Cardiovascular: regular rate, rhythm, no edema, no gallop, no JVD, no murmur Abdomen: normal bowel sounds, soft, no organomegaly, + tenderness (mild, RUQ, no rebound) Extremities: normal range of motion, non-tender, normal inspection, no pedal edema, no calf tenderness Neurologic/Psychiatric: hospitality services manager II-XII nml as tested, no motor/sensory deficits, alert, normal mood/affect, oriented x 3 Skin: normal color, warm/dry, no rash Laboratory Results Last 24 Hours Test 01/20/17 16:40 01/20/17 20:25 01/21/17 08:08 01/21/17 09:37 Bedside Glucose 105 mg/dl 183 mg/dl 104 mg/dl Total Bilirubin 0.7 mg/dl Direct Bilirubin 0.2 mg/dl Aspartate Amino Transf (AST/SGOT) 42 U/L Alanine Aminotransferase (ALT/SGPT) 82 U/L Alkaline Phosphatase 52 U/L Total Protein 5.9 gm/dl Albumin 2.3 gm/dl Lipase 68 U/L Test 01/21/17 11:51 Bedside Glucose 114 mg/dl Assessment and Plan 66 y/o F Hx Colon CA - colostomy 2012, DM, DVT, HTN. Visiting from the [place] area and developed acute abdominal pain, nausea and vomiting. Symptoms persisted and she presented to the hospital. A CT abdomen was obtained and is equivocal, favoring a possible hepatitis although cholecystitis and pancreatitis could not be ruled out. LFTs and Lipase are additionally elevated. Acute gallstone pancreatitis with acute on chronic cholecystitis: pancreatitis resolved, lipase normal, minimal pain, appetite returning, advance to diabetic diet today MRCP results reviewed, no filling defects, no stones in CBD, stones seen in gall bladder appreciate GI consult Lap cholecystectomy on 01/20 - intraoperative findings, acute and chronic cholecystitis, pancreatitis recovering well from surgery, only with incisional pain, diet advanced, she has output from ostomy possible d/c tomorrow Abnormal urinalysis: + 30WBC and LE, no symptoms, no fever, hold on antibiotics , follow up culture DM - Placed on SS, well controlled, diabetic diet HTN - Cont Metoprolol HPL - statin held due to acute transaminitis, resume on d/c DVT prophylaxis: heparin possible d/c tomorrow if tolerating diet and pain controlled Continued [facility] stay due to: multiple IV medications needed, other ( cholecystectomy today. ) Discharge planning: home
[2017-01-21] MEDS ORDERED: BENZOCAINE 20% (ORAJEL) 11.9 GM TUBE MT PRN (16:15)
--- NOTE | 2017-01-21 18:25 | GASTROENTEROLOGY PROGRESS NOTE ---
DATE: 01/21/2017 GASTROENTEROLOGY INPATIENT PROGRESS NOTE SUBJECTIVE: The patient underwent a laparoscopic cholecystectomy on Thursday. Overall, she is doing well, although has some incisional discomfort. The patient also underwent a cholangiogram. Gallbladder pathology is pending at this time. LABORATORY STUDIES: Yesterday, white count 10.5, hemoglobin 12.8, platelets are 127. Serum chemistries show a continued resolution of liver function tests, total bilirubin, direct bilirubin, and alkaline phosphatase are normal. AST slightly elevated at 42, ALT at 82; these are both down from yesterday at which time, AST was 85 and ALT 153. The patient has been ambulating using incentive spirometry. She has no difficulty with urination and has been having ileostomy output. PHYSICAL EXAMINATION ABDOMEN: There are abdoul in the right upper quadrant adjacent to her stoma. There is mild tenderness along the right upper quadrant area without rebound or guarding. Abdomen soft, otherwise with positive bowel sounds. EXTREMITIES: Without edema. IMPRESSION: The patient is status post laparoscopic cholecystectomy. We will be advancing diet later today and if doing well tentatively plans for discharge tomorrow. I did speak with the patient that her LFTs have been resolving well since admission; however, it is unclear what her baseline laboratory values are and certainly fatty liver that was evident on her ultrasound may represent some baseline liver test abnormalities. These need to be compared with her primary care provider in [place]. These should be followed to baseline or to normal, whichever. If LFTs persist, further evaluation with serum markers for her chronic liver disease may be necessary. Weight loss and control of lipid panel, blood sugar, blood pressure and may be all helpful in reducing fatty liver. Her cholangiogram showed no evidence of choledocholithiasis. We will sign off at this time. Please contact the office if you have any questions. Thank you for allowing me to participate in this pleasant lady's care.
[2017-01-22] MEDS: PIPERACILL/TAZOBAC IV 3.375 GM in DEXTROSE 5% 100ML IV SCH ×3 (05:26→21:52)
[2017-01-22 06:28] LABS: HEMATOCRIT 32.3 % (37-47); MEAN CELL VOLUME 93.6 fL (80-100); MEAN CORPUSCULAR HEMOGLOBIN 30.7 pg (25-34); MEAN CORPUSCULAR HGB CONC 32.8 g/dl (32-36); MEAN PLATELET VOLUME 9.6 fL (7.4-10.4); PLATELET COUNT 184 K/uL (130-400); RED BLOOD COUNT 3.45 M/uL (4.2-5.4); WHITE BLOOD COUNT 6.79 K/uL (4.8-10.8)
[2017-01-22 07:09] VITALS: BP 112/73; PULSE 76; TEMP 37.5; O2SAT 96
[2017-01-22 07:25] VITALS: O2SAT 96
[2017-01-22 07:40] VITALS: BP 138/72; PULSE 62; TEMP 36.1; O2SAT 96
[2017-01-22] MEDS: INSULIN ASPART 100 UNITS/ML 3 ML PEN SC SCH ×4 (08:31→21:01)
[2017-01-22] MEDS: ASPIRIN 81 MG ECTAB PO SCH (08:32)
[2017-01-22] MEDS: ATORVASTATIN 10 MG TAB PO SCH (08:32)
[2017-01-22] MEDS: ASCORBIC ACID 500 MG TAB PO SCH (08:32)
[2017-01-22] MEDS: METOPROLOL SUCC 25MG EXT REL TAB PO SCH (08:33)
[2017-01-22] MEDS: CYANOCOBALAMIN 500 MCG TAB (VIT B-12) PO SCH (08:33)
--- NOTE | 2017-01-22 10:09 | Surgery Progress Note ---
Surgery Progress Note Date of Service Jan 22, 2017. Subjective Post OP Day: 2 + feeling well, + bowel movement, + flatus, + pain controlled, No nausea, No vomiting In to see patient this morning- Patient reports that she is doing well. No concerns overnight. Pain improves each day. Objective Vital Signs: Date Time Temp Pulse Resp B/P (MAP) Pulse Ox O2 Delivery O2 Flow Rate FiO2 01/22/17 07:25 96 Room Air 01/22/17 07:09 37.5 76 18 112/73 (86) 96 Room Air 01/21/17 23:00 37.5 84 16 124/71 (88) 93 Room Air 01/21/17 20:40 Room Air 01/21/17 15:21 37.6 82 16 120/70 (87) 94 Room Air Physical Exam: OMAR drainage (220cc yesterday; 10cc so far today. Serosang drainage. ) General Appearance: WD/WN, no apparent distress Respiratory/Chest: no respiratory distress, no accessory muscle use Abdomen: non tender, non distended, soft Incision(s): clean, dry, intact Laboratory Results: Results Past 24 Hours Test 01/21/17 11:51 01/21/17 17:09 01/21/17 20:46 01/22/17 05:25 Range/Units Bedside Glucose 114 152 172 70-90 mg/dl White Blood Count 6.79 4.8-10.8 K/uL Red Blood Count 3.45 4.2-5.4 M/uL Hemoglobin 10.6 12.0-16.0 g/dL Hematocrit 32.3 37-47 % Mean Corpuscular Volume 93.6 80-100 fL Mean Corpuscular Hemoglobin 30.7 25-34 pg Mean Corpuscular Hemoglobin Concent 32.8 32-36 g/dl RDW Standard Deviation 47.8 36.4-46.3 fL RDW Coefficient of Variation 13.9 11.5-14.5 % Platelet Count 184 130-400 K/uL Mean Platelet Volume 9.6 7.4-10.4 fL Test 01/22/17 07:51 Range/Units Bedside Glucose 133 70-90 mg/dl Assessment & Plan POD #2- s/p Laparoscopic Cholecystectomy with Intraoperative Cholangiogram. Patient is doing well- was getting ready to get out bed. Dr. Lundy in to see and examine patient. She is tolerating diet. Denies nausea or vomiting. Pain is controlled. If she continues to tolerate diet and pain is controlled ok to discharge tomorrow. POD #1- s/p Laparoscopic Cholecystectomy with Intraoperative Cholangiogram. Patient is doing well- out of bed and in chair next to bed. Will check Lipase and LFTs. Tolerated liquid diet yesterday- diet advanced to Diabetes Type 2 diet. Pain controlled. Patient on IV Zosyn. Dr. Lundy in to see and examine patient. Will continue to follow. POD #1- s/p Laparoscopic Cholecystectomy with Intraoperative Cholangiogram. Patient is doing well- out of bed and in chair next to bed. Will check Lipase and LFTs. Tolerated liquid diet yesterday- diet advanced to Diabetes Type 2 diet. Pain controlled. Patient on IV Zosyn. Dr. Lundy in to see and examine patient. Will continue to follow.
--- NOTE | 2017-01-22 11:49 | Progress Note ---
Subjective Date of Service: Jan 22, 2017. Subjective Pt evaluation today including: conversation w/ patient, physical exam, lab review, conversation w/ consultant [employer]. vice president [employer] (ex ), review of inpatient medication list Pain: better today, RUQ, only on position changes PO Intake: tolerating regular diet Voiding: no voiding problems patient sitting in chair, feeling better than yesterday tearful earlier regarding the pulmonary nodule that was incidental finding, worried about recurrent or new malignancy with h/o colon cancer discussed that the nodule was small at 4mm, for now just an imaging finding, need repeat in 3 months back home at [facility] still with dark, liquid output from ostomy reviewed labs, H/H dropped to 10.6, will heme occult ostomy output appreciate note from Dr. Lundy, will keep here today, hope for d/c home tomorrow from surgical standpoint Review of Systems Abdomen: + pain (RUQ, minimal, just with movement), + problem reported (dark output from ostomy, more liquid than normal) All Other Systems: Reviewed and Negative Medications Current Inpatient Medications Medications (Trade) Dose Ordered Sig/Ana Route Start Time Stop Time Status Last Admin Dose Admin Ioversol (Optiray 320) 100 ml UD PRN IV 01/18/17 19:30 01/22/17 19:29 Heparin Sodium (Porcine) (Heparin Sq 5000 Unit/0.5ml) 5,000 unit Q8H SQ 01/19/17 06:00 02/18/17 05:59 Future Hold 01/21/17 05:26 5,000 UNIT Al Hydrox/Mg Hydrox/Simethicone (Maalox Max Susp) 15 ml Q4H PRN PO 01/18/17 22:00 02/17/17 21:59 Magnesium Hydroxide (Milk Of Magnesia Susp) 30 ml Q6H PRN PO 01/18/17 22:00 02/17/17 21:59 Polyethylene (Miralax Powder Packet) 17 gm DAILY PRN PO 01/18/17 22:00 02/17/17 21:59 Zolpidem Tartrate (Ambien Tab) 5 mg HSZ PRN PO 01/18/17 22:00 02/17/17 21:59 Ondansetron HCl (Zofran Inj) 4 mg Q6H PRN IV 01/18/17 22:00 02/17/17 21:59 01/19/17 11:39 4 MG Metoclopramide HCl (Reglan Inj) 5 mg Q6H PRN IV 01/18/17 22:15 02/17/17 22:14 Glucose (Glucose 40% Gel) 15-30 GRAMS 15 GRAMS... UD PRN PO 01/19/17 00:15 02/18/17 00:14 Glucose (Glucose Chew Tab) 4-8 Tablets 4 Tabl... UD PRN PO 01/19/17 00:15 02/18/17 00:14 Dextrose (Dextrose 50% 50ML Syringe) 25-50ML OF 50% DW IV FOR... UD PRN IV 01/19/17 00:15 02/18/17 00:14 Glucagon (Glucagon Inj) 1 mg UD PRN SQ 01/19/17 00:15 02/18/17 00:14 Morphine Sulfate (MoRPHine SULFATE INJ) 3 mg Q3H PRN IV 01/19/17 03:30 02/02/17 03:29 01/21/17 18:02 3 MG Acetaminophen 650 mg/Empty Bag 65 ml @ 260 mls/hr Q6H PRN IV 01/20/17 00:30 02/19/17 00:29 01/20/17 01:38 260 MLS/HR Piperacillin Sod/ Tazobactam Sod 3.375 gm/Dextrose 115 ml @ 28.75 mls/ hr Q8H IV 01/20/17 06:00 01/30/17 05:59 01/22/17 05:26 28.75 MLS/HR Piperacillin Sod/ Tazobactam Sod (Consult) 1 ea UD PRN N/A 01/20/17 01:00 02/19/17 00:59 Ascorbic Acid (Vitamin C Tab) 1,000 mg DAILY PO 01/21/17 09:00 02/20/17 08:59 01/22/17 08:32 1,000 MG Aspirin (Ecotrin Tab) 81 mg DAILY PO 01/21/17 09:00 02/20/17 08:59 01/22/17 08:32 81 MG Atorvastatin Calcium (Lipitor Tab) 10 mg DAILY PO 01/21/17 09:00 02/20/17 08:59 01/22/17 08:32 10 MG Cyanocobalamin (Vitamin B-12 Tab) 1,000 mcg DAILY PO 01/21/17 09:00 02/20/17 08:59 01/22/17 08:33 1,000 MCG Metformin HCl (Glucophage Extended Rel Tab) 500 mg BID PO 01/20/17 21:00 02/19/17 20:59 Future hold Metoprolol Succinate (Toprol Xl Tab) 25 mg DAILY PO 01/21/17 09:00 02/20/17 08:59 01/22/17 08:33 25 MG Insulin Aspart (novoLOG ASPART) SLIDING SCALE G... ACHS SC 01/20/17 21:00 02/19/17 20:59 01/21/17 20:58 1 UNITS Oxycodone/ Acetaminophen (Percocet 5-325mg Tab) 1 tab Q4H PRN PO 01/21/17 11:15 02/04/17 11:14 Benzocaine (Orajel 2% Oral Gel) 1 appln Q8 PRN MT 01/21/17 16:15 02/20/17 16:14 Objective Vital Signs Date Time Temp Pulse Resp B/P (MAP) Pulse Ox O2 Delivery O2 Flow Rate FiO2 01/22/17 07:25 96 Room Air 01/22/17 07:09 37.5 76 18 112/73 (86) 96 Room Air 01/21/17 23:00 37.5 84 16 124/71 (88) 93 Room Air 01/21/17 20:40 Room Air 01/21/17 15:21 37.6 82 16 120/70 (87) 94 Room Air Physical Exam General Appearance: no apparent distress, + obese Neck: supple, no adenopathy, no JVD, trachea midline Respiratory/Chest: chest non-tender, lungs clear, normal breath sounds, no respiratory distress, no accessory muscle use Cardiovascular: regular rate, rhythm, no edema, no gallop, no JVD, no murmur Abdomen: normal bowel sounds, soft, no organomegaly, + tenderness (RUQ), + pertinent finding (ostomy, dark brown output) Extremities: normal range of motion, non-tender, normal inspection, no pedal edema, no calf tenderness Neurologic/Psychiatric: commercial manager II-XII nml as tested, no motor/sensory deficits, alert, normal mood/affect, oriented x 3 Skin: normal color, warm/dry, no rash Lymphatic: no adenopathy Laboratory Results Last 24 Hours Test 01/21/17 11:51 01/21/17 17:09 01/21/17 20:46 01/22/17 05:25 Bedside Glucose 114 mg/dl 152 mg/dl 172 mg/dl White Blood Count 6.79 K/uL Red Blood Count 3.45 M/uL Hemoglobin 10.6 g/dL Hematocrit 32.3 % Mean Corpuscular Volume 93.6 fL Mean Corpuscular Hemoglobin 30.7 pg Mean Corpuscular Hemoglobin Concent 32.8 g/dl RDW Standard Deviation 47.8 fL RDW Coefficient of Variation 13.9 % Platelet Count 184 K/uL Mean Platelet Volume 9.6 fL Test 01/22/17 07:51 Bedside Glucose 133 mg/dl Assessment and Plan 66 y/o F Hx Colon CA - colostomy 2012, DM, DVT, HTN. Visiting from the [place] area and developed acute abdominal pain, nausea and vomiting. Symptoms persisted and she presented to the hospital. A CT abdomen was obtained and is equivocal, favoring a possible hepatitis although cholecystitis and pancreatitis could not be ruled out. LFTs and Lipase are additionally elevated. Acute gallstone pancreatitis with acute on chronic cholecystitis: pancreatitis resolved, lipase normal, minimal pain, appetite normal and tolerating diet MRCP results reviewed, no filling defects, no stones in CBD, stones seen in gall bladder appreciate GI consult from today, signed off today from pancreatitis standpoint, recommend follow up on LFT at home at [facility] cholecystectomy on 01/20 - intraoperative findings, acute and chronic cholecystitis, pancreatitis recovering well from surgery, only with incisional pain, diet advanced, she has output from ostomy d/c tomorrow from surgical standpoint Acute anemia: Hb dropped to 10.6 from 14 on admission, noted some dark output in ostomy plan will be to check heme occult, if positive then ask GI to re-evaluate for possible EGD Abnormal urinalysis: + 30WBC and LE, no symptoms, no fever, hold on antibiotics , follow up culture - 3 organisms, all low counts DM - Placed on SS, well controlled, diabetic diet HTN - Cont Metoprolol HPL - statin held initially due to acute transaminitis Drop in platelets - hold heparin, dropped to 127, now back up to 180's DVT prophylaxis: SCD Plan: check heme occult, if positive then notify GI, if negative and counts stable tomorrow, plan for d/c home Continued [facility] stay due to: multiple IV medications needed, other ( cholecystectomy today. ) Discharge planning: home
--- NOTE | 2017-01-22 13:07 | Medical Student: [facility] ---
Med Student Progress Note Date of Service Jan 22, 2017. Subjective Pt evaluation today including: conversation w/ patient Pain: 4 PO Intake: good Voiding: no voiding problems Ms Gia Bernal is a 66yo female on hospital day 5 with resolved acute pancreatitis and acute cholecystitis two days s/p cholecystectomy. She is doing well today, but is nervous about possible lung cancer due to spot on lung found incidentally. She has many questions about her health, including cause of cholecystitis, how "gall bladder is " without symptoms, pancreatitis, etc. She became tearful during our conversation due to nerves, but notes many more good days than bad ones. Notes good energy and plans to walk around. She has some 4/10 RUQ abdominal discomfort still. She did not try percocet yesterday, will today. Pain controlled last night with morphine. Tolerating a normal diet. She emptied her ostomy today which had continued watery dark stools. She denies fevers, chills, headache, nausea, vomiting, diarrhea, chest pain or shortness of breath. Per surgery, she will stay through tomorrow. Review of Systems Constitutional: No problem reported Eyes: No problem reported ENT: No problem reported Respiratory: No problem reported Cardiac: No problem reported Breast: No problem reported Abdomen: + pain, No problem reported Musculoskeletal: No problem reported Female : No problem reported Neurologic: No problem reported Psychiatric: + depression symptoms (situational), + anxiety (related to possible lung cancer) Heme: No problem reported Endo: No problem reported Skin: No problem reported Objective Vital Signs Date Time Temp Pulse Resp B/P (MAP) Pulse Ox O2 Delivery O2 Flow Rate FiO2 01/22/17 07:25 96 Room Air 01/22/17 07:09 37.5 76 18 112/73 (86) 96 Room Air 01/21/17 23:00 37.5 84 16 124/71 (88) 93 Room Air 01/21/17 20:40 Room Air 01/21/17 15:21 37.6 82 16 120/70 (87) 94 Room Air Physical Exam Comments: Vitals: See above. General: Wd/wn. Resting comfortably, no acute distress. Somewhat anxious, tearful during conversation. HEENT: NCAT, EOMI, PERRLA. Mucus membranes moist. CV: S1, S2. No MRG. RRR. Pulm: Lungs clear to auscultation in upper and lower lobes bilaterally. Abdomen: Soft, mild RUQ pain. No epigastric pain. No rebound pain. Bowel sounds active. Ostomy with black liquid stool. Surgical wounds covered with bandage. Neuro/Psych. AOx3. Anxious but easily calmed with conversation. Used word "depressed" but notes no chronic depression. Laboratory Results Last 24 Hours Test 01/21/17 17:09 01/21/17 20:46 01/22/17 05:25 01/22/17 07:51 Bedside Glucose 152 mg/dl 172 mg/dl 133 mg/dl White Blood Count 6.79 K/uL Red Blood Count 3.45 M/uL Hemoglobin 10.6 g/dL Hematocrit 32.3 % Mean Corpuscular Volume 93.6 fL Mean Corpuscular Hemoglobin 30.7 pg Mean Corpuscular Hemoglobin Concent 32.8 g/dl RDW Standard Deviation 47.8 fL RDW Coefficient of Variation 13.9 % Platelet Count 184 K/uL Mean Platelet Volume 9.6 fL Test 01/22/17 11:47 Bedside Glucose 156 mg/dl Assessment and Plan Assessment and Plan: Ms Gia Bernal is a pleasant 66 yo female on hospital day 5 with acute pancreatitis and cholecystitis, post op day 2 s/p cholecystectomy, and a history of HNPCC and colon cancer s/p colostomy. Individual assessment and plan are as follows: 1. Acute pancreatitis: Resolved. Lipase wnl. Likely due to cholelithiasis/ cholecystitis. Intraoperative cholangiogram negative for retained stone. Clinically improving with controlled post surgical pain. Tolerating diabetic diet. LFTs remain elevated today. GI ([facility]) on board. 2. Acute cholecystitis: 2 day s/p cholecystectomy. Gall bladder noted to be acutely/chronically inflamed on inspection, path pending. Improving clinically with minimal post-op pain. 3. HLD: Restart statins 4. DM: Sliding scale insulin. Diabetic diet. 5. HTN: Well controlled on metoprolol. No change needed. 6. Possible UTI: Dirty urine, asymptomatic. Will watch culture. Will treat if positive, likely asymptomatic bacteruria. 7. DVT Proph: Heparin sq q8. Platelets rebounded today. Hgb down 2 points to 10.6 today. Will check heme occult stool test. GI consult if positive to rule out gastric bleed. Is on PO iron. 8. Dispo: Post-op day 2 cholecystectomy, minimal pain. Transitioned to oral pain meds today. Discharge likely tomorrow to home pending surgery approval. Will need [address] followup in [place] for 4mm nodule found. Continued [facility] stay due to: multiple IV medications needed, other ( cholecystectomy today. ) Discharge planning: home
[2017-01-22] MEDS: OXYCODONE/ACETAMINOPHEN 5-325 TAB PO PRN (14:56)
[2017-01-22 15:05] VITALS: BP 116/70; PULSE 78; TEMP 37.5; O2SAT 98
[2017-01-22] MEDS: METFORMIN HCL 500 MG TABCR PO SCH (21:00)
[2017-01-22 23:00] VITALS: BP 142/82; PULSE 70; TEMP 36.6; O2SAT 98
[2017-01-23] MEDS: OXYCODONE/ACETAMINOPHEN 5-325 TAB PO PRN ×4 (00:05→23:26)
[2017-01-23 05:46] LABS: HEMATOCRIT 28.7 % (37-47); MEAN CELL VOLUME 93.2 fL (80-100); MEAN CORPUSCULAR HEMOGLOBIN 30.5 pg (25-34); MEAN CORPUSCULAR HGB CONC 32.8 g/dl (32-36); MEAN PLATELET VOLUME 9.3 fL (7.4-10.4); PLATELET COUNT 156 K/uL (130-400); RED BLOOD COUNT 3.08 M/uL (4.2-5.4)
[2017-01-23] MEDS: PIPERACILL/TAZOBAC IV 3.375 GM in DEXTROSE 5% 100ML IV SCH (06:22)
[2017-01-23 07:45] VITALS: O2SAT 96
[2017-01-23 08:05] VITALS: BP 114/69; PULSE 68; TEMP 36.3; O2SAT 99
--- NOTE | 2017-01-23 08:33 | Surgery Progress Note ---
Surgery Progress Note Date of Service Jan 23, 2017. Subjective Post OP Day: 3 + feeling well, + ambulating, + flatus, + pain controlled, No nausea, No vomiting Patient sitting in chair next to bed. Reports that she is doing well. Denies nausea or vomiting. Tolerating diet. Objective Vital Signs: Date Time Temp Pulse Resp B/P (MAP) Pulse Ox O2 Delivery O2 Flow Rate FiO2 01/22/17 23:00 36.6 70 16 142/82 (102) 98 Room Air 01/22/17 20:00 Room Air 01/22/17 15:05 37.5 78 16 116/70 (85) 98 Room Air Physical Exam: OMAR drainage (135 cc (01/22); 15 cc (today) serosang drainage. ) General Appearance: WD/WN, no apparent distress Abdomen: non tender, non distended, soft Incision(s): clean, dry, intact Laboratory Results: Results Past 24 Hours Test 01/22/17 11:47 01/22/17 16:55 01/22/17 19:50 01/22/17 20:40 Range/Units Bedside Glucose 156 149 188 70-90 mg/dl Stool Occult Blood POSITIVE NEGATIVE Test 01/23/17 05:13 01/23/17 07:55 Range/Units White Blood Count 5.10 4.8-10.8 K/uL Red Blood Count 3.08 4.2-5.4 M/uL Hemoglobin 9.4 12.0-16.0 g/dL Hematocrit 28.7 37-47 % Mean Corpuscular Volume 93.2 80-100 fL Mean Corpuscular Hemoglobin 30.5 25-34 pg Mean Corpuscular Hemoglobin Concent 32.8 32-36 g/dl RDW Standard Deviation 47.0 36.4-46.3 fL RDW Coefficient of Variation 13.9 11.5-14.5 % Platelet Count 156 130-400 K/uL Mean Platelet Volume 9.3 7.4-10.4 fL Assessment & Plan POD #3- s/p Laparoscopic Cholecystectomy with Intraoperative Cholangiogram. Dr. Lundy in to see and examine patient. Patient doing well. D/C IV. Patient may shower. Reviewed patient's recent labs. Dr. Lundy discussed personally with Dr. Bee. Will repeat CBC tomorrow. Patient tolerating diet. Pain is controlled. Patient ok to discharge tomorrow- will be going to son's home in [place]. Patient to follow-up in the office next week for staple and drain removal. POD #2- s/p Laparoscopic Cholecystectomy with Intraoperative Cholangiogram. Patient is doing well- was getting ready to get out bed. Dr. Lundy in to see and examine patient. She is tolerating diet. Denies nausea or vomiting. Pain is controlled. If she continues to tolerate diet and pain is controlled ok to discharge tomorrow. POD #1- s/p Laparoscopic Cholecystectomy with Intraoperative Cholangiogram. Patient is doing well- out of bed and in chair next to bed. Will check Lipase and LFTs. Tolerated liquid diet yesterday- diet advanced to Diabetes Type 2 diet. Pain controlled. Patient on IV Zosyn. Dr. Lundy in to see and examine patient. Will continue to follow. POD #2- s/p Laparoscopic Cholecystectomy with Intraoperative Cholangiogram. Patient is doing well- was getting ready to get out bed. Dr. Lundy in to see and examine patient. She is tolerating diet. Denies nausea or vomiting. Pain is controlled. If she continues to tolerate diet and pain is controlled ok to discharge tomorrow. POD #1- s/p Laparoscopic Cholecystectomy with Intraoperative Cholangiogram. Patient is doing well- out of bed and in chair next to bed. Will check Lipase and LFTs. Tolerated liquid diet yesterday- diet advanced to Diabetes Type 2 diet. Pain controlled. Patient on IV Zosyn. Dr. Lundy in to see and examine patient. Will continue to follow.
--- NOTE | 2017-01-23 08:38 | Discharge Instructions ---
Discharge Instructions Date of Service Jan 23, 2017. Admission Reason for Admission: Abd Pain, Choledocholithiasis Discharge Discharge Diagnosis / Problem: Abdominal Pain, Choledocholithiasis Discharge Goals Goal(s): Decrease discomfort, Improve function Activity Recommendations Activity Limitations: as noted below Lifting Limitations: no more than 10 pounds Exercise/Sports Limitations: until after follow-up appointment May Resume Sexual Activity: after follow-up appointment Shower/Bathe: no limitations Driving or Machine Use: resume 3 days after discharge . Instructions / Follow-Up Instructions / Follow-Up Please follow-up with Dr. Lundy in the office next week for staple and drain removal. Please call the office at [phone] to make an appointment. Please call the office at [phone] with any questions or concerns. Current Hospital Diet Patient's current hospital diet: Diabetes Type 2 Diet Discharge Diet Recommended Diet: Diabetes Type 2 Diet Procedures Procedures Performed: Laparoscopic Cholecystectomy with Cholangiogram Pending Studies Studies pending at discharge: no Medical Emergencies . Who to Call and When: Medical Emergencies: If at any time you feel your situation is an emergency, please call 911 immediately. . Non-Emergent Contact Non-Emergency issues call your: Primary Care Provider, Surgeon Call Non-Emergent contact if: temperature is above 101.5, your pain is not controlled, wound has increased drainage, wound has increased redness . "Provider Documentation" section prepared by Hortencia Beltrán. . VTE Core Measure Inpt VTE Proph given/why not?: Unfractionated heparin SQ, SCD's [place] Drug Monitoring Program Search Results: patient reviewed within database, no issues identified
[2017-01-23] MEDS ORDERED: OXYC-57 PO (08:43)
[2017-01-23] MEDS: INSULIN ASPART 100 UNITS/ML 3 ML PEN SC SCH ×4 (08:48→21:00)
[2017-01-23] MEDS: ASCORBIC ACID 500 MG TAB PO SCH (08:49)
[2017-01-23] MEDS: METFORMIN HCL 500 MG TABCR PO SCH ×2 (08:50→21:29)
[2017-01-23] MEDS: ATORVASTATIN 10 MG TAB PO SCH (08:50)
[2017-01-23] MEDS: METOPROLOL SUCC 25MG EXT REL TAB PO SCH (08:50)
[2017-01-23] MEDS: CYANOCOBALAMIN 500 MCG TAB (VIT B-12) PO SCH (08:50)
[2017-01-23] MEDS: PANTOprazole SOD 40 MG TAB PO SCH (09:49)
--- NOTE | 2017-01-23 11:21 | Progress Note ---
Subjective Date of Service: Jan 23, 2017. Subjective Pt evaluation today including: conversation w/ patient, physical exam, lab review, conversation w/ salesforce consultant, review of inpatient medication list Pain: controlled with Percocet PO Intake: adequate Voiding: no voiding problems patient doing well, tolerating diet, pain controlled, ambulating in the halls noted that H/H dropped, Hb 9.4 from 10.6 yesterday and the ostomy output was heme positive discussed personally with both Dr. Weston and Dr. Lundy this morning vitals stable, Dr. Lundy feels that drop in Hb within range of expected will hold on EGD, repeat H/H tomorrow patient agrees with this plan, she is nervous to have a scope Review of Systems Abdomen: + pain (RUQ, intermittent) All Other Systems: Reviewed and Negative Medications Current Inpatient Medications Medications (Trade) Dose Ordered Sig/Ana Route Start Time Stop Time Status Last Admin Dose Admin Heparin Sodium (Porcine) (Heparin Sq 5000 Unit/0.5ml) 5,000 unit Q8H SQ 01/19/17 06:00 02/18/17 05:59 Future Hold 01/21/17 05:26 5,000 UNIT Al Hydrox/Mg Hydrox/Simethicone (Maalox Max Susp) 15 ml Q4H PRN PO 01/18/17 22:00 02/17/17 21:59 Magnesium Hydroxide (Milk Of Magnesia Susp) 30 ml Q6H PRN PO 01/18/17 22:00 02/17/17 21:59 Polyethylene (Miralax Powder Packet) 17 gm DAILY PRN PO 01/18/17 22:00 02/17/17 21:59 Zolpidem Tartrate (Ambien Tab) 5 mg HSZ PRN PO 01/18/17 22:00 02/17/17 21:59 Ondansetron HCl (Zofran Inj) 4 mg Q6H PRN IV 01/18/17 22:00 02/17/17 21:59 01/19/17 11:39 4 MG Metoclopramide HCl (Reglan Inj) 5 mg Q6H PRN IV 01/18/17 22:15 02/17/17 22:14 Glucose (Glucose 40% Gel) 15-30 GRAMS 15 GRAMS... UD PRN PO 01/19/17 00:15 02/18/17 00:14 Glucose (Glucose Chew Tab) 4-8 Tablets 4 Tabl... UD PRN PO 01/19/17 00:15 02/18/17 00:14 Dextrose (Dextrose 50% 50ML Syringe) 25-50ML OF 50% DW IV FOR... UD PRN IV 01/19/17 00:15 02/18/17 00:14 Glucagon (Glucagon Inj) 1 mg UD PRN SQ 01/19/17 00:15 02/18/17 00:14 Acetaminophen 650 mg/Empty Bag 65 ml @ 260 mls/hr Q6H PRN IV 01/20/17 00:30 02/19/17 00:29 01/20/17 01:38 260 MLS/HR Ascorbic Acid (Vitamin C Tab) 1,000 mg DAILY PO 01/21/17 09:00 02/20/17 08:59 01/23/17 08:49 1,000 MG Aspirin (Ecotrin Tab) 81 mg DAILY PO 01/21/17 09:00 02/20/17 08:59 Future Hold 01/22/17 08:32 81 MG Atorvastatin Calcium (Lipitor Tab) 10 mg DAILY PO 01/21/17 09:00 02/20/17 08:59 01/23/17 08:50 10 MG Cyanocobalamin (Vitamin B-12 Tab) 1,000 mcg DAILY PO 01/21/17 09:00 02/20/17 08:59 01/23/17 08:50 1,000 MCG Metformin HCl (Glucophage Extended Rel Tab) 500 mg BID PO 01/20/17 21:00 02/19/17 20:59 Future hold 01/23/17 08:50 500 MG Metoprolol Succinate (Toprol Xl Tab) 25 mg DAILY PO 01/21/17 09:00 02/20/17 08:59 01/23/17 08:50 25 MG Insulin Aspart (novoLOG ASPART) SLIDING SCALE G... ACHS SC 01/20/17 21:00 02/19/17 20:59 01/22/17 21:01 1 UNITS Oxycodone/ Acetaminophen (Percocet 5-325mg Tab) 1 tab Q4H PRN PO 01/21/17 11:15 02/04/17 11:14 01/23/17 00:05 1 TAB Benzocaine (Orajel 2% Oral Gel) 1 appln Q8 PRN MT 01/21/17 16:15 02/20/17 16:14 Pantoprazole Sodium (Protonix Tab) 40 mg QAM PO 01/23/17 09:00 02/22/17 08:59 01/23/17 09:49 40 MG Objective Vital Signs Date Time Temp Pulse Resp B/P (MAP) Pulse Ox O2 Delivery O2 Flow Rate FiO2 01/23/17 08:05 36.3 68 17 114/69 (84) 99 Room Air 01/23/17 07:45 96 Room Air 01/22/17 23:00 36.6 70 16 142/82 (102) 98 Room Air 01/22/17 20:00 Room Air 01/22/17 15:05 37.5 78 16 116/70 (85) 98 Room Air Physical Exam General Appearance: no apparent distress, + obese Eyes: normal inspection, EOMI, sclerae normal Neck: supple, no adenopathy, no JVD, trachea midline Respiratory/Chest: chest non-tender, lungs clear, normal breath sounds, no respiratory distress, no accessory muscle use Cardiovascular: regular rate, rhythm, no edema, no gallop, no JVD, no murmur Abdomen: normal bowel sounds, soft, no organomegaly, + tenderness (RUQ, mild), + pertinent finding (incisions clean, intact, dry, abdoul in place, OMAR drain in place in RUQ) Extremities: normal range of motion, non-tender, normal inspection, no pedal edema, no calf tenderness, pelvis stable Neurologic/Psychiatric: erp consultant II-XII nml as tested, no motor/sensory deficits, alert, normal mood/affect, oriented x 3 Skin: normal color, warm/dry, no rash Lymphatic: no adenopathy Laboratory Results Last 24 Hours Test 01/22/17 11:47 01/22/17 16:55 01/22/17 19:50 01/22/17 20:40 Bedside Glucose 156 mg/dl 149 mg/dl 188 mg/dl Stool Occult Blood POSITIVE Test 01/23/17 05:13 01/23/17 08:20 White Blood Count 5.10 K/uL Red Blood Count 3.08 M/uL Hemoglobin 9.4 g/dL Hematocrit 28.7 % Mean Corpuscular Volume 93.2 fL Mean Corpuscular Hemoglobin 30.5 pg Mean Corpuscular Hemoglobin Concent 32.8 g/dl RDW Standard Deviation 47.0 fL RDW Coefficient of Variation 13.9 % Platelet Count 156 K/uL Mean Platelet Volume 9.3 fL Bedside Glucose 125 mg/dl Assessment and Plan 66 y/o F Hx Colon CA - colostomy 2012, DM, DVT, HTN. Visiting from the [place] area and developed acute abdominal pain, nausea and vomiting. Symptoms persisted and she presented to the hospital. A CT abdomen was obtained and is equivocal, favoring a possible hepatitis although cholecystitis and pancreatitis could not be ruled out. LFTs and Lipase are additionally elevated. Acute gallstone pancreatitis with acute on chronic cholecystitis: pancreatitis resolved, lipase normal, minimal pain, appetite normal and tolerating diet MRCP results reviewed, no filling defects, no stones in CBD, stones seen in gall bladder Lap cholecystectomy on 01/20 - intraoperative findings, acute and chronic cholecystitis, pancreatitis recovering well from surgery, only with incisional pain, diet advanced, she has output from ostomy tentatively plan for d/c to home on 01/24, Percocet for pain, general surgery filled out discharge instructions Dr. Lundy will see in office next week for staple removal and OMAR drain removal Acute anemia: Hb dropped to 9.4 from 10.6, was 14 on admission, noted some dark output in ostomy that was found to be heme positive discussed with GI and general surgery, hold on EGD, repeat H/H tomorrow if H/H drops again would discuss with surgery tomorrow to confirm that they feel the drop is related to surgery Dr. Weston (GI) recommends starting Protonix and d/c patient on 2 weeks of Protonix, aspirin stopped, would hold for a week post-op Lung nodule: incidental finding, 4mm, patient knows that she needs CT chest in 3 months at home at [place], her PCP will arrange Abnormal urinalysis: + 30WBC and LE, no symptoms, no fever, hold on antibiotics , follow up culture - 3 organisms, all low counts, no abx needed DM - Placed on SS, well controlled, diabetic diet HTN - Cont Metoprolol HPL - statin held initially due to acute transaminitis, resume on d/c DVT prophylaxis: SCD Plan: check H/H tomorrow, if significantly drops, then talk with general surgery , may still require an EGD and in that case it would have to wait until Thursday if H/H stable then d/c home, will go home with son to [place], follow up with Dr. Lundy next week d/c on Percocet for pain, Protonix daily x 2 weeks, hold aspirin for a week repeat CT chest in 3 months to follow up on 4mm lung nodule Continued [facility] stay due to: multiple IV medications needed, other ( cholecystectomy today. ) Discharge planning: home
--- NOTE | 2017-01-23 11:24 | Medical Student: [facility] ---
Med Student Progress Note Date of Service Jan 23, 2017. Subjective Pt evaluation today including: conversation w/ patient Pain: 2 PO Intake: good Voiding: no voiding problems Ms Jalen Bernal is a 66 yo female on hospital day 6 with resolved acute pancreatitis and post-op day 3 s/p cholecysectomy for acute gangrenous cholecystitis. She is resting comfortably this morning and has been up walking already. She is voiding without difficulty and pain is localized to around her OMAR drain. She is able to ambulate without difficulty. Pain is well controlled with percocet. She does not note any decreased energy or increased weakness. After discussing her labs, which showed a decreaed H&H over the past few days and a heme positive stool, she desires to forego EGD at this time to evaluate possible upper GI bleed. She prefers conservative management at this time. She has no other concerns today. Review of Systems Constitutional: + see HPI, No fever, No chills, No sweats, No weight loss, No weakness, No fatigue Eyes: No problem reported ENT: No problem reported Respiratory: No problem reported Cardiac: No problem reported Abdomen: + pain (around drain with ambulation), No problem reported Musculoskeletal: No problem reported Female : No problem reported Neurologic: No problem reported Psychiatric: No problem reported Heme: No problem reported Skin: No problem reported Objective Vital Signs Date Time Temp Pulse Resp B/P (MAP) Pulse Ox O2 Delivery O2 Flow Rate FiO2 01/23/17 08:05 36.3 68 17 114/69 (84) 99 Room Air 01/23/17 07:45 96 Room Air 01/22/17 23:00 36.6 70 16 142/82 (102) 98 Room Air 01/22/17 20:00 Room Air 01/22/17 15:05 37.5 78 16 116/70 (85) 98 Room Air Physical Exam Comments: Vitals: See above. General: Wd/wn. Resting comfortably, no acute distress. Less anxious than yesterday. HEENT: NCAT, EOMI, PERRLA. Mucus membranes moist. CV: S1, S2. No MRG. RRR. Pulm: Lungs clear to auscultation in upper and lower lobes bilaterally. Abdomen: Soft, mild RUQ pain. No epigastric pain. No rebound pain. Bowel sounds active. Ostomy with dark somewhat formed stool. Surgical wounds healing well. Neuro/Psych. AOx3. Less anxious than yesterday, not depressed. Laboratory Results Last 24 Hours Test 01/22/17 11:47 01/22/17 16:55 01/22/17 19:50 01/22/17 20:40 Bedside Glucose 156 mg/dl 149 mg/dl 188 mg/dl Stool Occult Blood POSITIVE Test 01/23/17 05:13 01/23/17 08:20 White Blood Count 5.10 K/uL Red Blood Count 3.08 M/uL Hemoglobin 9.4 g/dL Hematocrit 28.7 % Mean Corpuscular Volume 93.2 fL Mean Corpuscular Hemoglobin 30.5 pg Mean Corpuscular Hemoglobin Concent 32.8 g/dl RDW Standard Deviation 47.0 fL RDW Coefficient of Variation 13.9 % Platelet Count 156 K/uL Mean Platelet Volume 9.3 fL Bedside Glucose 125 mg/dl Assessment and Plan Assessment and Plan: Ms Gia Bernal is a pleasant 66 yo female on hospital day 6 with acute pancreatitis and cholecystitis, post op day 3 s/p cholecystectomy, and a history of HNPCC and colon cancer s/p colostomy. Individual assessment and plan are as follows: 1. Acute pancreatitis: Resolved. Lipase wnl x several days. Likely due to cholelithiasis/cholecystitis. Intraoperative cholangiogram negative for retained stone. Tolerating diabetic diet. 2. Acute cholecystitis: 3 days s/p cholecystectomy. Clinically improving with po controlled post surgical pain. Gall bladder noted to be acutely/chronically inflamed on inspection, path with chronic inflammation and gangrene. Improving clinically with minimal post-op pain, mostly around drain. Will continue with drain to be removed at f/u appointment with Kamron next week. 3. HLD: Continue statin 4. DM: Sliding scale insulin. Diabetic diet. Tolerating diet well. 5. HTN: Well controlled on metoprolol. No change needed. 6. Possible UTI: Contamination; culture negative. 7. DVT Proph: Heparin sq q8, held x 2 days. Platelets stable today. 8. Anemia: Hgb down 1 points to 9.4 today, down from 14 at admission. Heme + stool yesterday. Will hold off on egd at this time per surgery and patient desire. Per Kamron, could be normal post-surgical drop, heme + stool due to bleeding in biliary tract. Will follow with GI if H&H are lower tomorrow or continue to drop at outpatient surg follow up appointment. 9. Dispo: Discharge tomorrow to son's home. F/u with surgery, repeat H&H tomorrow and at f/u appointment. Will need [address] followup in [place] for 4mm nodule found incidentally. Continued [facility] stay due to: other (cholecystectomy today. ) Discharge planning: home (with son)
[2017-01-23 15:54] VITALS: BP 121/72; PULSE 74; TEMP 37.6; O2SAT 97
[2017-01-23 22:33] LABS: ALPHA-1-ANTITRYPSIN TC 67710E 199 MG/DL (83-199)
[2017-01-23 22:59] VITALS: BP 118/68; PULSE 83; TEMP 36.9; O2SAT 94
[2017-01-24] MEDS: OXYCODONE/ACETAMINOPHEN 5-325 TAB PO PRN ×2 (05:18→09:15)
[2017-01-24 05:53] LABS: HEMATOCRIT 32.8 % (37-47)
[2017-01-24 07:40] VITALS: BP 124/70; PULSE 60; TEMP 36.5; O2SAT 99
[2017-01-24] MEDS: INSULIN ASPART 100 UNITS/ML 3 ML PEN SC SCH ×2 (08:51→13:00)
[2017-01-24] MEDS: METFORMIN HCL 500 MG TABCR PO SCH (09:09)
[2017-01-24] MEDS: ASCORBIC ACID 500 MG TAB PO SCH (09:09)
[2017-01-24] MEDS: PANTOprazole SOD 40 MG TAB PO SCH (09:09)
[2017-01-24] MEDS: ATORVASTATIN 10 MG TAB PO SCH (10:23)
[2017-01-24] MEDS: CYANOCOBALAMIN 500 MCG TAB (VIT B-12) PO SCH (10:24)
[2017-01-24] MEDS: METOPROLOL SUCC 25MG EXT REL TAB PO SCH (10:24)
--- NOTE | 2017-01-24 12:10 | Surgery Progress Note ---
Surgery Progress Note Date of Service Jan 24, 2017. Subjective Post OP Day: 4 + feeling well F/U abiodun yatese pt is doing fine, no abdominal pain, no nausea, no vomiting, OMAR minimal, Objective Vital Signs: Date Time Temp Pulse Resp B/P (MAP) Pulse Ox O2 Delivery O2 Flow Rate FiO2 01/24/17 07:40 36.5 60 17 124/70 (88) 99 Room Air 01/23/17 23:20 Room Air 01/23/17 22:59 36.9 83 16 118/68 (85) 94 Room Air 01/23/17 16:33 Room Air 01/23/17 15:54 37.6 74 16 121/72 (88) 97 Room Air General Appearance: WD/WN Head: normocephalic Neck: supple, no JVD Respiratory/Chest: chest non-tender, lungs clear Cardiovascular: regular rate, rhythm, no edema, no gallop, no JVD Abdomen: normal bowel sounds, non tender, non distended, soft Incision(s): clean, dry, intact Extremities: normal range of motion, non-tender, normal inspection Laboratory Results: Results Past 24 Hours Test 01/23/17 17:05 01/23/17 20:50 01/24/17 05:25 01/24/17 08:17 Range/Units Bedside Glucose 147 156 125 70-90 mg/dl Hemoglobin 10.6 12.0-16.0 g/dL Hematocrit 32.8 37-47 % Assessment & Plan IMP: S/P lap kip pt wants to go home today I gave pt post -op care instruction, pt understood, F/U Dr. Lundy in one week,
[2017-01-24 12:37] VITALS: BP 124/70; PULSE 60; TEMP 36.5; O2SAT 99
--- NOTE | 2017-01-24 14:05 | DISCHARGE SUMMARY ---
DATE OF DISCHARGE: 01/24/2017. ADMITTING DIAGNOSES: 1. Acute Cholecystitis s/p laparoscopic cholecystectomy and intraoperative cholangiogram. 2. Gallstone pancreatitis. 3. Mild postoperative anemia. SECONDARY DIAGNOSES: 1. Colon cancer s/p colostomy 2012. 2. Type 2 diabetes mellitus. 3. Hypertension. 4. History of deep venous thrombosis. HOSPITAL COURSE: Mrs. Bernal is a very pleasant 66-year-old white female who was admitted acutely on 01/18/2017 complaining of nausea, vomiting, and abdominal pain. CT scan of the abdomen and pelvis confirmed fluid within the malvin hepatis, periportal edema, trace perihepatic ascites, and trace pericholecystic fluid, also confirmed the presence of acute cholecystitis and cholelithiasis. The patient was noted to have a markedly elevated lipase level at 23,109 units per liter consistent with pancreatitis. On 01/20/2017 the patient underwent a laparoscopic cholecystectomy with cholangiogram. She was kept in the hospital because of ongoing pancreatitis and severe abdominal pain. She also developed a mild postoperative anemia, and her current hemoglobin is 10.4 grams/dL. The patient is asymptomatic. She has been eating normally and output from her colostomy. The patient offers no other complaints or concerns. LABORATORY DATA: Hemoglobin 10.6 gm/dL, hematocrit 38.2%, random glucose 125. Peak lipase level was 23,109. As of 01/21/2017 it was down to 68 units per liter. Creatinine on admission was 1.10 with a BUN of 20. This subsequently improved to a creatinine of 0.92 and BUN of 19 as of 01/19/2017. LFTs were elevated secondary to choledocholithiasis. Cardiac enzymes were negative. Ceruloplasmin level was within normal limits. Alpha 1 antitrypsin was at the upper limits of normal 199 mg/dL. Electrolytes remain stable throughout the hospitalization. CYNTHIA screen was negative. Antimitochondrial antibody and antismooth muscle antibody were both less than 1:20. Lyme titer was negative. Hepatitis A, B and C testing was negative. Influenza A and B were negative as well. IMAGING: Abdomen and pelvic CT scan, abdominal ultrasound, MRCP, and cholangiogram. DISCHARGE MEDICATIONS: 1. Protonix 40 mg daily. 2. Percocet 5/325 one tablet p.o. every 4 hours p.r.n. for pain. 3. Vitamin C 1000 mg daily. 4. Lipitor 10 mg daily. 5. Vitamin B12 1000 mcg daily. 6. Toprol XL 25 mg daily. 7. Glucophage 500 mg b.i.d. ALLERGIES: LATEX. PHYSICAL EXAMINATION: VITAL SIGNS: Temperature 36.5 C, pulse 50 and regular, respiration rate 14 unlabored, blood pressure 124/70, SPO2 is 99% on room air. GENERAL: The patient is in no acute distress. Sitting upright in a bedside chair. HEAD, EYES, EARS, NOSE, AND THROAT: Head is atraumatic, normocephalic. EOM intact. Sclera anicteric. Faces symmetric. No perioral cyanosis. Mucous membranes moist. NECK: Without thyromegaly, adenopathy or JVD. Carotid upstrokes +2 bilaterally without bruits. CHEST AND LUNGS: Are clear to auscultation throughout all lung herbert. No wheezes, rales, or rhonchi. CARDIOVASCULAR SYSTEM: S1 and S2 are regular with murmur, gallop, or rub. PMI is nondisplaced. No lifts, heaves, or thrills. ABDOMINAL EXAMINATION: Bowel sounds are present. Colostomy intact. OMAR drain intact. EXTREMITIES: Are with +2 pretibial edema bilaterally. Calves are soft, nontender. NEUROLOGIC EXAMINATION: Patient is awake, alert and oriented, pleasant and cooperative. Answers questions appropriately. Speech is clear. Normal movement in all four extremities. ACTIVITY RECOMMENDATIONS: No lifting more than 10 pounds until after follow-up appointment. May shower or bathe without limitations. May resume driving 3 days after discharge. FOLLOW-UP INSTRUCTIONS: Follow up with Dr. Lundy next week for staple and drain removal. The patient will call Dr. Lundy's office to make that appointment. [facility]
== END 2017-01-24 13:43 | disposition home or self-care (01) | DRG 417 ==
LOC: ENRESERVTM → ENRESERVDT → C.EDB 16:48 → C.3E 22:03 → MERGE 22:03
PROVIDERS: ADMIT Internal Medicine; ATTEND Internal Medicine
PROC: 0FT44ZZ Resection of Gallbladder, Percutaneous Endoscopic Approach (ICD-10-PCS; principal; 2017-01-20 13:30)
PROC: BF13YZZ Fluoroscopy of Gallbladder and Bile Ducts using Other Contrast (ICD-10-PCS; principal; 2017-01-20 13:30)
DX: K80.12 Calculus of gallbladder with acute and chronic cholecystitis without obstruction (principal); K85.10 Biliary acute pancreatitis without necrosis or infection; D64.9 Anemia, unspecified; E11.9 Type 2 diabetes mellitus without complications; I10 Essential (primary) hypertension; E66.9 Obesity, unspecified; Z51.81 Encounter for therapeutic drug level monitoring; Z79.899 Other long term (current) drug therapy; Z79.84 Long term (current) use of oral hypoglycemic drugs; Z79.82 Long term (current) use of aspirin; Z93.2 Ileostomy status; Z93.3 Colostomy status; Z85.038 Personal history of other malignant neoplasm of large intestine; Z86.718 Personal history of other venous thrombosis and embolism; Z90.710 Acquired absence of both cervix and uterus; Z83.3 Family history of diabetes mellitus; Z85.44 Personal history of malignant neoplasm of other female genital organs; Z85.048 Personal history of other malignant neoplasm of rectum, rectosigmoid junction, and anus; Z68.34 Body mass index [BMI] 34.0-34.9, adult; Z82.49 Family history of ischemic heart disease and other diseases of the circulatory system; Z82.3 Family history of stroke